=== PATIENT | male | born 1945 | race Caucasian/White ===

== ENCOUNTER → 2017-07-17 | Outpatient (CLI) | payer BC ==
[~2017-07-17] MED LIST: ACCUNEB SO1.25 MG/1 INH; APAP650 PO; ASPIR 8181 M1 PO; ASPIR 8181 MG PO; ASPIRIN81 M2 PO; ATORVASTATIN CA40 MG PO; BENADRYL25 MG PO; BENTYL 20 MG TA20 M1 PO; BIOFREEZE118 ML TOP; BIOFREEZE118 ML TP; BISACODYL SUPP10 MG RECTAL; CAPSAICIN HOT1 EACH TP; CARDIZEM CD120 MG PO; CARDIZEM60 MG PO; CENTRUM SILVER1 EAC4 PO; CLARITHROMYCIN250 M2 PO; CLONAZEPAM 0.50.5 M1 PO; CLONAZEPAM 1 MG1 M1 PO; COLACE100 MG PO; CORTEF 20 MG TA20 MG PO; CORTEF10 MG PO; COUMADIN 1MG TAB1 M1; COUMADIN 1MG TAB1 M1 PO; COUMADIN 2.5MG2.5 M1 PO; COUMADIN 5 MG TA5 M1 PO; CRESTOR10 MG PO; CRESTOR20 MG PO; DICYCLOMINE HCL20 MG PO; DULCOLAX STOOL100 MG PO; DURAGESIC1 EAC1 TRANSDERM; EFFEXOR XR75 MG PO; ERY-TAB250 MG PO; ERYTHROMYCIN250 M1 PO; FENOFIBRATE160 MG PO; FENTANYL PA50 MCG/HR TRANSDERM; FISH OIL 1,001000 M2 PO; FLOMAX0.4 MG PO; GABAPENTIN 100100 MG PO; HIPREX1 GM PO; HYDROCHLOROTH12.5 M1 PO; HYDROCODONE-APA1 TA1 PO; HYDROCORTISONE PO; HYDROCORTISONE10 MG PO; IBUPROFEN 200200 M1 PO; IMDUR 60 MG TAB60 M1 PO; INVANZ 1GM/NS 101 GM IV; KEFLEX250 M1 PO; KEFLEX250 MG PO; KLOR-CON 1010 MEQ PO; LASIX 20 MG TAB20 MG PO; LASIX 40 MG TAB40 M2 PO; LEVOTHYROXIN0.025 MG; LEVOTHYROXINE 0.1 MG PO; LIDODERM 5%1 PATC1 TRANSDERM; LIPITOR 20 MG T20 M1 PO; LIPITOR40 MG PO; LIPITOR80 MG PO; LISINOPRIL2.5 MG PO; LISINOPRIL5 MG PO; LOFIBRA160 MG PO; LOPRESSOR25 PO; LYRICA 50 MG50 MG PO; MELATONIN3 MG PO; METAMUCIL PAC1 UDPKT PO; METOPROLOL TART25 MG PO; MIRALAX17 G1 PO; MOM PO; NEURONTIN 300300 M1 PO; NEXIUM40 MG PO; NITROGLYCERIN0.4 MG SUBLING; NORCO 10-325 T1 EACH; NORCO 5-325 TA1 EAC1 PO; NORCO 5-325 TA1 EACH PO; NORCO 7.5-3251 EACH PO; NORVASC5 MG PO; PLAVIX 75 MG TA75 M1 PO; PROAIR HFA8.5 GM; PROAIR HFA8.5 GM INH; PROLIA60 MG/1 ML SQ; RESTORIL15 MG PO; RESTORIL30 MG PO; SINGULAIR 10 MG10 M1 PO; SPIRIVA INH; SYMBICORT80 MCG/4.1 INH; TOPROL XL25 MG PO; TRIGLIDE160 M1 PO; TYLENOL325 MG PO; VENLAFAXIN75 MG/1 T2 PO; VENLAFAXINE HC225 MG PO; VENTOLIN HFA 1818 GM INH; VICODIN ES 7.51 EACH PO; VITAMIN D 5050000 I1 PO; ZOFRAN ODT4 MG PO; hydrocortisone
--- NOTE | 2017-07-17 17:55 | 2DMMODE ---
[place] [address] 2 D/M-MODE ECHOCARDIOGRAM Name: MUKUL ROBERTS Room: [facility]#: [id number] Admission: 07/17/17 Attend Phys: Jonathan Blankenship, Discharge: Date of : 47 Date of Service: 07/17/17 1755 Report #: [id number] THIS REPORT FOR: //name// APPROVED REPORT Study performed: 07/17/2017 13:29:40 EXAM: Comprehensive 2D, Doppler, and color-flow Echocardiogram Patient Location: Out-Patient Status: routine BSA: 2.65 HR: 88 bpm BP: 95/44 mmHg Other Information Study Quality: Technically Difficult Technically limited study due to body habitus. Indications Murmur Echo Enhancing Agent Indication: Endocardial border delineation Agent(s) / Amount(s) Used: Optison cc 2D Dimensions LVEF(%): 66.57 (>50%) IVSd: 12.88 (7-11mm) LVOT Diam: 20.84 (18-24mm) LVDd: 48.73 mm PWd: 12.45 (7-11mm) Ascending Ao: 38.76 (22-36mm) LVDs: 30.77 (25-40mm) Aortic Root: 34.14 mm Herndon's LVEF: 66.57 % Pulmonary Valve PV Peak Wilder.: 1.06 m/s PV Peak Gr.: 4.47 mmHg Tricuspid Valve TR Peak Gr.: 17.47 mmHg Left Ventricle The left ventricle is normal size. There is normal LV segmental wall motion. Mild concentric left ventricular [place] [address] 2 D/M-MODE ECHOCARDIOGRAM Name: MUKUL ROBERTS Room: [facility]#: [id number] Admission: 07/17/17 Attend Phys: Jonathan Blankenship, Discharge: Date of : 47 Date of Service: 07/17/17 1755 Report #: [id number] ventricular systolic function is normal. The left ventricular ejection fraction is within the normal range. LVEF is 60-65%. Right Ventricle Right ventricle is mildly dilated. The right ventricular systolic function is normal. Atria The left atrium size is normal. The right atrium size is normal. Aortic Valve Aortic valve is mildly calcified. Mild aortic regurgitation. There is no aortic valvular stenosis. Mitral Valve The mitral valve is normal in structure. There is no mitral valve regurgitation noted. No evidence of mitral valve stenosis. Tricuspid Valve The tricuspid valve is normal in structure. Mild tricuspid regurgitation. The RVSP is __22.5 mmHg. Pulmonic Valve Pulmonic valve is not well visualized. Mild pulmonic regurgitation. Great Vessels Aortic root is mildly dilated. IVC is not well visualized. Pericardium There is no pericardial effusion. <Conclusion> Mild concentric left ventricular hypertrophy. LVEF is 60-65%. Right ventricle is mildly dilated. Aortic valve is mildly calcified <ELECTRONICALLY SIGNED> By: Julian Virk MD, FACC 07/17/171754 54 54 Julian Virk MD, FACC /INF
== END ==
LOC: M.CT 12:42
DX: M51.36 Other intervertebral disc degeneration, lumbar region (principal); M47.896 Other spondylosis, lumbar region; I25.10 Atherosclerotic heart disease of native coronary artery without angina pectoris; I07.1 Rheumatic tricuspid insufficiency; I37.1 Nonrheumatic pulmonary valve insufficiency; I51.7 Cardiomegaly; I70.0 Atherosclerosis of aorta

== ENCOUNTER 2017-09-14 20:09 | Inpatient (IN) | payer BC ==
[~2017-09-14] VITALS: Ht 188 cm; Wt 143.3 kg
[~2017-09-14 20:09] MED LIST changes: -ASPIRIN81 M2 PO; -CLARITHROMYCIN250 M2 PO
[2017-09-14 20:14] VITALS: BP 185/99
[2017-09-14] MEDS ORDERED: SINGULAIR 10 MG10 M1 PO (20:24)
[2017-09-14 20:40] LABS: ANION GAP 7 mmol/L (7-16); BUN 24 mg/dL (7-18); CALCIUM 8.2 mg/dL (8.5-10.1); CHLORIDE 102 mmol/L (98-107); CO2 30 mmol/L (21-32); CREATININE 1.9 mg/dL (0.6-1.3); GLUCOSE 150 mg/dL (70-99); POTASSIUM 3.8 mmol/L (3.5-5.1); SODIUM 139 mmol/L (136-145)
[2017-09-14 20:49] LABS: INR 1.7; PROTIME 16.2 Seconds (9.20-11.50)
[2017-09-14 20:51] LABS: ALBUMIN 3.2 g/dL (3.4-5.0); ALKALINE PHOSPHATASE 50 U/L (46-116); NT-PRO BRAIN NAT PEPTIDE 195 pg/mL (<300); SGOT 21 U/L (15-37); SGPT 22 U/L (30-65); TOTAL BILIRUBIN 0.5 mg/dL (<0.1-1.0); TOTAL PROTEIN 7.2 g/dL (6.4-8.2); TROPONIN-I LEVEL <0.06 ng/mL (<0.06)
[2017-09-14 20:54] LABS: ABSOLUTE EOSINOPHILS 0.1 thou/uL (0.0-0.7); ABSOLUTE LYMPHOCYTES 1.7 thou/uL (0.8-5.3); ABSOLUTE MONOCYTES 0.6 thou/uL (0.0-1.2); ABSOLUTE NEUTROPHILS 4.5 thou/uL (1.6-8.1); BASOPHILS 0.2 %; EOSINOPHILS 1.5 %; HEMATOCRIT 37.8 % (42.0-52.0); HEMOGLOBIN 12.5 gm/dL (14.0-18.0); LYMPHOCYTES 24.5 %; MCH 28.2 pg (26.0-34.0); MCV 85.5 fL (80.0-100.0); MONOCYTES 9.1 %; MPV 8.7 fl. (7.2-11.1); NUCLEATED RBCS 0 /100WBC; PLATELET COUNT* 222 thou/uL (150-400); POLYS 64.7 %; RBC 4.42 mil/uL (4.50-6.00); RDW-CV 16.4 % (10.5-14.5); WBC 6.9 thou/uL (4.0-11.0)
[2017-09-14 22:36] VITALS: BP 116/58
[2017-09-15 01:29] LABS: URINE BILIRUBIN NEGATIVE (Negative); URINE BLOOD NEGATIVE (Negative); URINE CLARITY CLEAR; URINE COLOR YELLOW; URINE GLUCOSE-RANDOM NEGATIVE (Negative); URINE KETONES NEGATIVE (Negative); URINE LEUKOCYTES-REFLEX NEGATIVE (Negative); URINE NITRITE-REFLEX NEGATIVE (Negative); URINE PROTEIN NEGATIVE (Negative); URINE UROBILINOGEN 0.2 E.U./dl (0.2-1.0)
[2017-09-15 03:43] LABS: HEMATOCRIT 33.8 % (42.0-52.0); HEMOGLOBIN 11.3 gm/dL (14.0-18.0); MCH 28.5 pg (26.0-34.0); MCHC 33.3 g/dL (28.0-37.0); MCV 85.4 fL (80.0-100.0); MPV 8.4 fl. (7.2-11.1); RBC 3.95 mil/uL (4.50-6.00); RDW-CV 16.6 % (10.5-14.5); WBC 5.4 thou/uL (4.0-11.0)
[2017-09-15 04:10] VITALS: BP 121/62
[2017-09-15 04:16] LABS: ALBUMIN 2.9 g/dL (3.4-5.0); CALCIUM 8.1 mg/dL (8.5-10.1); CREATININE 1.7 mg/dL (0.6-1.3); POTASSIUM 4.2 mmol/L (3.5-5.1); TOTAL BILIRUBIN 0.4 mg/dL (<0.1-1.0); TOTAL PROTEIN 5.9 g/dL (6.4-8.2)
--- NOTE | 2017-09-15 05:32 | NUR ---
PT ADMITTED FROM ER WITH CP AND HYPERTENSION. HISTORY AND ASSESSMENT COMPLETE. PACED ON MONITOR. O2 2L PER PROTOCOL. FENTANYL PATCH PLACED PER ORDER TO RIGHT UPPER BACK. FALL PRECAUTIONS IN PLACE INCLUDING BED ALARM. AT BEDSIDE. UP WITH WALKER AND MIN ASSIST. HAS HAD MULTIPLE FALLS AT HOME RECENTLY. ORIENTED TO ROOM/BED CONTROLS/CALL LIGHT. PT VERBALIZED UNDERSTANDING.
[2017-09-15 08:00] VITALS: BP 142/57
[2017-09-15 12:00] VITALS: BP 141/71
--- NOTE | 2017-09-15 15:49 | NUR ---
I ASSUMED CARE OF THE PATIENT AT 0700. HE IS ALERT AND ORIENTED AND HIS IS AT THE BEDSIDE. PATIENT WAS NPO UNTIL CARDIOLOGY CLEARED FOR HEART HEALTHY DIET. BED IS IN THE LOW LOCKED POSITION AND CALL LIGHT IS IN REACH. HOURLY ROUNDING WAS COMPLETED AND PATIENT NEEDS WERE MET. CHRONIC PAIN IS MANAGED WITH PRN MEDS AND PATCHES. DR BERRIOS WANTS TO D/C WARFARIN AND MAKE PATIENT NPO AT 0000 FOR A CARDIAC CATH ON 09/16/17. PATIENT IS PROGRESSING TOWARDS GOALS. HE IS UP WITH ASSIST OF 1, WALKER AND GAIT BELT. WILL CONTINUE TO MONITOR.
[2017-09-15 16:00] VITALS: BP 98/52
--- NOTE | 2017-09-15 16:41 | EKG ---
[place] [address] ELECTROCARDIOGRAM REPORT Name: MUKUL ROBERTS Room: [address] ADM IN [facility].#: [id number] Admission: 09/14/17 Attend Phys: Altaf Soto, Discharge: Date of : 47 Report #: [id number] THIS REPORT FOR: //name// [facility] ED Test Date: 2017-09-14 Test Time: 20:13:14 Pat Name: MUKUL ROBERTS Department: Room: [facility] Gender: M Lumber Bearer: NENO Carter : 1945 Requested By: Rhoda Scott Order Number: [id number] MD: Julian Virk Measurements Intervals [place] Rate: 105 P: 70 DE: 197 QRS: 31 QRSD: 87 T: 75 QT: 329 QTc: 435 Interpretive Statements Sinus tachycardia Baseline wander in lead(s) V2,V3 Compared to ECG 04/18/2017 10:05:54 Sinus rhythm no longer present Electronically Signed On 09-15-2017 16:41:12 CDT by Julian Virk [email or web address] <ELECTRONICALLY SIGNED> By: Julian Virk MD, FACC 09/15/17 1641 12 12 Julian Virk MD, [facility] /EPI
--- NOTE | 2017-09-15 16:59 | EKG ---
[place] [address] ELECTROCARDIOGRAM REPORT Name: MUKUL ROBERTS Room: [address] ADM IN .R.#: [id number] Admission: 09/14/17 Attend Phys: Altaf Soto, Discharge: Date of : 47 Report #: [id number] THIS REPORT FOR: //name// [facility] Test Date: 2017-09-15 Test Time: 08:38:26 Pat Name: MUKUL ROBERTS Department: Room: [address] Gender: M Brake Machine Operator: JEFFREY : 1945 Requested By: Julian Virk Order Number: [id number] Kadeem MD: Julian Virk Measurements Intervals [place] Rate: 68 P: 79 OR: 174 QRS: 30 QRSD: 92 T: 56 QT: 407 QTc: 433 Interpretive Statements Sinus rhythm nonspecific t wave changes Electronically Signed On 09-15-2017 16:59:33 CDT by Julian Virk [email or web address] <ELECTRONICALLY SIGNED> By: Julian Virk MD, [facility] 09/15/17 1659 0838 0838 Julian Virk MD, FACC /EPI
[2017-09-15 20:00] VITALS: BP 145/83
[2017-09-16] VITALS: BP 130/64
[2017-09-16 04:02] VITALS: BP 100/66
--- NOTE | 2017-09-16 05:20 | NUR ---
PT CARE ASSUMED AFTER REPORT. ASSESSMENT COMPLETE. PACED ON MONITOR. O2 2L NC. DENIES PAIN. FALL PRECAUTIONS IN PLACE INCLUDING BED ALARM. UP WITH WALKER AND ASSIST TO BATHROOM. NPO SINCE MIDNIGHT FOR PROCEDURE TODAY. CALL LIGHT IN REACH. BED IN LOWEST POSITION.
[2017-09-16 06:11] LABS: INR 1.3; PROTIME 13.1 Seconds (9.20-11.50)
[2017-09-16 08:00] VITALS: BP 145/61
--- NOTE | 2017-09-16 08:26 | CON ---
[address] [address] CONSULTATION Name: MUKUL ROBERTS Room: [address] IN M.R.#: [id number] Admission: 09/14/17 Attend Phys: Altaf Soto, Discharge: Date of : 47 Report #: [id number] THIS REPORT FOR: //name// CC: Ko Luciano DO Altaf Soto DATE OF SERVICE: 09/15/2017 CARDIOLOGY CONSULTATION HISTORY OF PRESENT ILLNESS: The patient is a 72-year-old white male who is admitted complaining of chest pain. The patient has an extensive and complicated past medical history. Unfortunately, most of his history occurred in [place], [place] and is not available. He apparently had a pacemaker inserted in 2002 for sick sinus syndrome with syncopal spells. Unfortunately, he continues to have syncope despite the pacemaker. He apparently underwent a generator change in [place] about 4 years ago. He has a history of paroxysmal atrial fibrillation with previous stroke and has been chronically anticoagulated. He has a long history of coronary artery disease. According to the patient and his , his first stent was placed in [place] about 5 years ago. He notes a month later, he had 5 additional stents placed while in [place], [place]. He presented here in 2013 with chest pain at [facility]. Heart catheterization showed no significant disease in the LAD or circumflex. The right coronary had multiple stents with a 70% narrowing of the mid right coronary artery. Dr. Rosario placed a single drug-eluting stent in the mid right coronary artery. His last stent was placed in [address] Corbett when a drug-eluting stent was placed in the right coronary artery. I actually performed his last heart catheterization in 04/2017 here at [facility] from the left femoral artery. I attempted from the radial artery, but could not access the left coronary artery. Results showed no significant disease in the LAD or circumflex. The right coronary artery had multiple stents. FFR was unremarkable. Medical therapy was recommended. His echocardiogram in July of this year showed an ejection fraction of 60%. The patient is not very active because of chronic back pain. The patient did well until a couple weeks ago. He developed shortness of breath and cough. He saw Dr. Luciano who placed him on amoxicillin. He has also had recurrent chest heaviness. It radiates into his left arm. It is usually relieved with nitroglycerin. It is not related to food or coughing. He has had no bleeding. He finally came to the Emergency Room last night and was admitted. He has noticed some shortness of breath and palpitations. He continues to have recurrent syncope. PAST MEDICAL HISTORY: Significant for prostate surgery, sinus surgery, tonsillectomy, hypertension, hyperlipidemia, sleep apnea [place] [address] CONSULTATION Name: ARMANDOMUKUL L Room: [address] IN [facility]#: [id number] Admission: 09/14/17 Attend Phys: Altaf Soto, Discharge: Date of : 47 Report #: [id number] MEDICATIONS: Consist of Neurontin, Flomax, fenofibrate, Plavix, warfarin, metoprolol, Synthroid, Lipitor, fentanyl patch, Lasix and Nexium. ALLERGIES: HE HAS INTOLERANCE TO VALIUM, OXYCODONE AND MORPHINE. FAMILY HISTORY: His father had heart disease. SOCIAL HISTORY: He is . He and his live in [place], [place]. He quit smoking years ago. He rarely drinks alcohol. He is retired from . REVIEW OF SYSTEMS: He apparently had a stroke in the past with loss of vision in his right eye. He has sleep apnea and uses BiPAP. He has a history of asthma. No history of peptic ulcer disease. He has chronic kidney disease. He has had a kidney stone in the past. No cancer. PHYSICAL EXAMINATION: GENERAL: Revealed a large male who is 6 feet, 300 pounds. VITAL SIGNS: He had a blood pressure of 140/60 and pulse 60. He was afebrile. HEENT: He was anicteric. Conjunctivae were pink. Mucous membranes moist. NECK: Neck veins difficult to assess due to obesity. No carotid bruits. CHEST: Clear to auscultation. CARDIAC EXAMINATION: Regular rate and rhythm. ABDOMEN: Obese, soft and nontender. EXTREMITIES: Had no edema. Dorsalis pedis pulse 2+ bilaterally. SKIN: Warm and dry. NEUROLOGICAL EXAMINATION: Nonfocal. RADIOGRAPHIC DATA: His ECG showed a sinus rhythm, nonspecific T-wave changes. His workup last night, he had portable chest x-ray, cardiomegaly and atelectasis. Carotid Doppler study in 2016 showed no significant stenosis. CT scan of the head in 2017 showed no acute abnormality. LABORATORY DATA: Sodium 143, creatinine 1.7 and glucose 115. Troponins all 0.06. TSH is 6.3. His white blood cell count 5.4, hemoglobin 11.3. INR last night was 1.7. IMPRESSION AND RECOMMENDATIONS: 1. Possible unstable angina. Recommend repeat cardiac catheterization. 2. History of atrial fibrillation. I would hold warfarin at this time. 3. Sick sinus syndrome. The patient had previous pacemaker inserted in [place]. 4. Obesity. 5. Chronic back pain. The patient uses a fentanyl patch. 6. Sleep apnea. The patient uses BiPAP. 7. Hypertension. The patient has been on [place] [address] CONSULTATION Name: MUKUL ROBERTS Jagdeep Room: [address] IN [facility].#: [id number] Admission: 09/14/17 Attend Phys: Altaf Soto, Discharge: Date of : 47 Report #: [id number] 8. Hyperlipidemia. The patient has been on a statin drug. 9. Chronic kidney disease. <ELECTRONICALLY SIGNED> By: Julian Virk MD, FACC 09/16/17 0826 1335 [id number] Virk MD, FACC /nt
[2017-09-16 12:00] VITALS: BP 122/56
[2017-09-16 14:03] LABS: ABSOLUTE EOSINOPHILS 0.2 thou/uL (0.0-0.7); ABSOLUTE LYMPHOCYTES 1.2 thou/uL (0.8-5.3); ABSOLUTE MONOCYTES 0.7 thou/uL (0.0-1.2); ABSOLUTE NEUTROPHILS 3.1 thou/uL (1.6-8.1); BASOPHILS 0.3 %; EOSINOPHILS 3.5 %; HEMATOCRIT 36.6 % (42.0-52.0); LYMPHOCYTES 23.7 %; MCH 27.8 pg (26.0-34.0); MCHC 32.8 g/dL (28.0-37.0); MCV 84.8 fL (80.0-100.0); MONOCYTES 14.2 %; MPV 8.5 fl. (7.2-11.1); NUCLEATED RBCS 0 /100WBC; PLATELET COUNT* 188 thou/uL (150-400); POLYS 58.3 %; RBC 4.31 mil/uL (4.50-6.00); RDW-CV 16.5 % (10.5-14.5); WBC 5.3 thou/uL (4.0-11.0)
--- NOTE | 2017-09-16 15:18 | NUR ---
WOUND NURSE: PATIENT SEEN TO ADDRESS CONTUSION FROM A FALL PRESENT ON THE LEFT LATEAL THIGH AND WHICH MEASURES 19.0 X 0.3 X 0.1 CM. THERE IS NO DRAINAGE NOTED AND SCABBING IS VERY SUPERFICIAL. THERE IS NO DRAINAGE NOTED. CLEANSED WTH SOAP AND WATER, RINSED WTH WATER, THEN PATTED DRY. APPLIED MARATHON LIQUID SKIN PROTECTANT AND LET DRY. NO FURTHER INTERVENTION WILL BE NECESSARY AT THIS TIME.
--- NOTE | 2017-09-16 15:26 | NUR ---
ATTEMPTED TO MEET WITH PT, OFF UNIT IN BUTANE COMPRESSOR OPERATOR
--- NOTE | 2017-09-16 18:52 | NUR ---
ASSUMED CARE OF PT AT 0730. PT CONTINUES TO BE A&O X4 CALM AND COOPERATIVE. PT HAS HAD NO C/O PAIN OR DISTRESS. PT WENT TO THE LEAD OPERATOR TODAY FOR A PROCEDURE AND HAS HAD NO COMPLICATIONS. CATH SITE IN LEFT GROIN HAS MINIMAL BRUISING AND A SCANT AMOUNT OF DRAINAGE THAT HAS NOT INCRESED IN SIZED. PT VSS SINCE HIS RETURN TO THE FLOOR AND HE HAS HAD NO COMPLAINTS OTHER THAN NOT BEING ALLOWED TO GET OUT OF BED TO USE THE BATHROOM. PT CURRENTLY RESTING IN BED WITH THE HOB LOCKED BELOW 30 DEGREES AND AT BEDSIDE. NURSING WILL CONTINUE TO MONITOR.
[2017-09-16 20:00] VITALS: BP 137/62
[2017-09-16 22:00] VITALS: BP 135/78
[2017-09-17] VITALS (7 sets, daily range): BP systolic 112–176; BP diastolic 54–94
[2017-09-17 05:58] LABS: HEMATOCRIT 34.8 % (42.0-52.0); HEMOGLOBIN 11.7 gm/dL (14.0-18.0); MCH 28.4 pg (26.0-34.0); MCHC 33.5 g/dL (28.0-37.0); MCV 84.6 fL (80.0-100.0); MPV 8.4 fl. (7.2-11.1); RBC 4.11 mil/uL (4.50-6.00); RDW-CV 16.5 % (10.5-14.5); WBC 4.5 thou/uL (4.0-11.0)
[2017-09-17 06:01] LABS: INR 1.2; PROTIME 11.5 Seconds (9.20-11.50)
--- NOTE | 2017-09-17 06:20 | NUR ---
PATIENT PROGRESSING TOWARDS GOALS: PATIENT REMAINS FREE OF CHEST PAIN. CATH SITE REMAINS WITHOUT SIGNS OF HEMATOMA. SCANT BLOOD ON DRESSING, BORDERS MARKED AND UNCHANGED THROUGHOUT SHIFT. PATIENT REMAINS ON 2L O2 NC WITH SATS >92%. PATIENT VOIDED PER URINAL THROUGHOUT SHIFT DESPITE BEING OFF BEDREST AT MIDNIGHT. PATIENT ANTICIPATING DISCHARGE TODAY. HOURLY ROUNDING OSBERVED. CALL LIGHT WITHIN REACH
[2017-09-17 06:45] LABS: ANION GAP 9 mmol/L (7-16); BUN 18 mg/dL (7-18); CHLORIDE 108 mmol/L (98-107); CHOLESTEROL 154 mg/dL (<200); CO2 24 mmol/L (21-32); CREATININE 1.5 mg/dL (0.6-1.3); GLUCOSE 126 mg/dL (70-99); HDL CHOLESTEROL 26 mg/dL (>40); LDL CHOLESTEROL 101 mg/dL (<100); POTASSIUM 3.7 mmol/L (3.5-5.1); SODIUM 141 mmol/L (136-145); TC:HDL 5.9 Ratio (Not establshd); TRIGLYCERIDE 136 mg/dL (<150); TROPONIN-I LEVEL <0.06 ng/mL (<0.06); VLDL 27 mg/dL (<40)
[2017-09-17 06:46] LABS: SERUM ASSESSMENT Clear
--- NOTE | 2017-09-17 10:57 | NUR ---
ASSUMED PT CARE AT 0700 PT IS ALERT AND ORIENTED X 4 PT IS UP WITH ASSIST X 1 PT IS A FALL RISK BED ALARM IS ON, PT IS DISCHARGING TODAY PT HAS BRUISE ON LEFT SIDE OF LEG, PT IS APACED ON THE MONITOR, WILL CONTINUE TO MONITOR
--- NOTE | 2017-09-17 11:56 | NUR ---
MET WITH PT AND SPOKE WITH /ELISA OVER THE PHONE TO DISCUSS HOME SITUATION/DC PLANNING. PT LIVE WITH , USES WALKER, W/C, O2 AND CPAP AT HOME. HIS O2 IS THRU [facility]. PT NEEDS SOME ASSIST WITH ADLS. HAS INHOME CARE AND HH THRU [facility]. CALLED AND FAXED UPDATED ORDERS TO MAURILIO/CONNIE. STATES SHE WILL PICK PT UP LATER TODAY. DENIES OTHER NEEDS.
[2017-09-17] MEDS ORDERED: LIPITOR80 MG PO (12:22)
[2017-09-17] MEDS ORDERED: ASPIRIN81 M2 PO (14:06)
--- NOTE | 2017-09-17 14:46 | EKG ---
[place] [address] ELECTROCARDIOGRAM REPORT Name: MUKUL ROBERTS Room: [address] ADM IN M.R.#: [id number] Admission: 09/14/17 Attend Phys: Altaf Soto, Discharge: Date of : 47 Report #: [id number] THIS REPORT FOR: //name// [facility] Test Date: 2017-09-17 Test Time: 03:24:06 Pat Name: MUKULLAKESHIA ROBERTS Department: Room: [address] Gender: M Government Property Inspector: : 1945 Requested By: Ezequiel Corbett Order Number: [id number] Kadeem MD: Jonathan Blankenship Measurements Intervals [place] Rate: 86 P: 97 NH: 206 QRS: 24 QRSD: 86 T: 73 QT: 449 QTc: 537 Interpretive Statements Sinus rhythm Abnormal R-wave progression, late transition Nonspecific T abnormalities, lateral leads Prolonged QT interval Baseline wander in lead(s) III Compared to ECG 09/15/2017 08:38:26 ST (T wave) deviation now present Prolonged QT interval now present T-wave abnormality still present Electronically Signed On 09-17-2017 14:46:16 CDT by Jonathan Blankenship [email or web address] <ELECTRONICALLY SIGNED> By: Jonathan Blankenship MD, FACC 09/17/17 1446 0324 0324 Jonathan Blankenship MD, FACC /EPI
--- NOTE | 2017-09-17 16:33 | CARD ---
[address] [address] CARDIAC CATH REPORT Name: ARMANDOMUKUL Jagdeep Room: [address]#: [id number] Admission: 09/14/17 Attend Phys: Altaf Soto, Discharge: 09/17/17 Date of : 47 Report #: [id number] THIS REPORT FOR: //name// APPROVED REPORT Patient Details Patient Status: In-Patient Room #: The patient is a 72 year-old male Event Personnel Ezequiel Corbett Adjudication Specialist, Geni Ji RN RN, Dale Anderson Monitor, Valerie Mathias RTR Scrub Procedures Performed Left heart catheterization selective coronary artery and stenting of the mid right coronary artery Indication Unstable angina Risk Factors Obesity, Hypercholesterolemia, Hypertension Previous Procedures/Diagnoses Previous PCI Admission/Lab Medications/Medications given during procedure Angiomax bolus and infusion Procedure Narrative The patient was brought electively to the Cardiac Catheterization Laboratory and was prepped and draped in a sterile manner. The left femoral was infiltrated with 1% Lidocaine subcutaneous anesthesia. A [place] 6 FR sheath was inserted into the left femoral artery. Coronary angiography was performed using coronary diagnostic catheters. The right coronary system was accessed and visualized with a Diagnostic - JR4 catheter. The left coronary system was accessed and visualized with a Diagnostic - JL4 catheter. The left ventricle was accessed and visualized with a Diagnostic - PIGTAIL catheter. Left ventricular/Aortic Valve gradient assessed via catheter pullback. Pre-demployment femoral angiogram was performed . Closure device was deployed with a Fr Angioseal STS 6Fr. The patient tolerated the procedure well and there were no complications associated with the procedure. [address] [address] CARDIAC CATH REPORT Name: MUKUL ROBERTS Room: [address]#: [id number] Admission: 09/14/17 Attend Phys: Altaf Soto, Discharge: 09/17/17 Date of : 47 Report #: [id number] Intraoperative Conscious Sedation Sedation start time: 1539 Case end Time: 1622 Versed 0.5 mg Fluoro Time: 10.1 minutes Dose: DAP [id number] cGycm2 1970 mGy Contrast Type and Amount: Visipaque 200 ml Coronary Angiography The patient's coronary anatomy is right dominant. Diagnostic Cath Left Main 10% distal narrowing LAD 30% proximal and mid vessel narrowings Circumflex 60% area of the first marginal branch of the nondominant circumflex Right Coronary Large dominant vessel with 30% proximal narrowing and 80% focal mid right coronary in-stent restenosis Ramus 0% narrowing Left Ventriculography Left Ventriculography was not performed. Hemodynamics The aortic pressure is 135/60 mmHg with a mean of 94 mmHg. The left ventricular pressure is 138/5 mmHg with a mean of mmHg. The left ventricular end diastolic pressure is 18 mmHg. There was no gradient across the aortic valve upon pullback. PCI Technique Lesion Anticoagulation was achieved with Angiomax. Patient was preloaded with Angiomax IV 20 ml. Percutaneous coronary intervention was performed on the mid right coronary artery. The lesion stenosis prior to intervention was 80% with BINH 3 flow. A 6F JR 4.0 Guide Catheter was used to engage the ostium. A IG: ProwaterFlex 180CM Interventional Guidewire was used to cross the lesion. BALLOON DILATION A Balloon catheter NC Trek RX 3.0 X 12 was inserted and inflated up to 18.00atm for 15seconds. Additional Inflation: 24.00atm for 14seconds. STENT DEPLOYMENT A stent Xience Alpine RX 3.25X12 was inserted and inflated up to 14.00atm for 12seconds. Additional Inflation: 18.00atm [place] 11[place]. [place] [address] CARDIAC CATH REPORT Name: MUKUL ROBERTS Room: [address]#: [id number] Admission: 09/14/17 Attend Phys: Altaf Soto, Discharge: 09/17/17 Date of : 47 Report #: [id number] Additional Inflation: 19.00atm for 13seconds. 20 RONALDO FOR 15 SEC Final angiography reveals 10 % stenosis with BINH 3 flow. Conclusion #1 significant coronary artery disease characterized by the following: A 10% distal left main coronary artery narrowing, B 30% proximal and mid LAD narrowing, C nondominant circumflex with 60% narrowing of the first marginal branch, D prominent ramus intermedius with no significant narrowing, E large dominant right coronary artery with 30% proximal narrowing and 80% focal mid right coronary in-stent restenosis #2 modest elevation of left ventricular end-diastolic pressure at rest #3 successful percutaneous coronary intervention with appointment of a drug-eluting stent at the site of 80% focal mid right coronary in-stent restenosis with 10% residual narrowing following stent deployment and BINH-3 flow to the distal vessel. Recommendations Daily ASA with Plavix for at least one year Aggressive Medical Therapy Weight Loss Reduction Program Medications Administered Aspirin (any) Clopidogrel Diagnostic Cath Approved by: Ezequiel Corbett MD Date/Time: 09/17/17 at 1630 hrs. <ELECTRONICALLY SIGNED> By: Ezequiel Corbett MD, [facility] 09/17/171631 31 31Ezequiel Corbett MD, FACC /INF
== END 2017-09-17 15:54 | disposition home health service (06) | DRG 246 ==
LOC: M.ERS 20:09 → M.TBA-ER 21:35 → M.2W 21:35
PROVIDERS: Emergency Medicine; Internal Medicine; ADMIT Family Medicine
PROC: 5A09357 Assistance with Respiratory Ventilation, Less than 24 Consecutive Hours, Continuous Positive Airway Pressure (ICD-10-PCS; principal; 2017-09-14)
PROC: 027034Z Dilation of Coronary Artery, One Artery with Drug-eluting Intraluminal Device, Percutaneous Approach (ICD-10-PCS; 2017-09-17)
PROC: 4A023N7 Measurement of Cardiac Sampling and Pressure, Left Heart, Percutaneous Approach (ICD-10-PCS; 2017-09-17)
PROC: B211YZZ Fluoroscopy of Multiple Coronary Arteries using Other Contrast (ICD-10-PCS; 2017-09-17)
DX: I20.0 Unstable angina (principal); N17.0 Acute kidney failure with tubular necrosis; N18.4 Chronic kidney disease, stage 4 (severe); I42.9 Cardiomyopathy, unspecified; Z68.41 Body mass index [BMI] 40.0-44.9, adult; I12.9 Hypertensive chronic kidney disease with stage 1 through stage 4 chronic kidney disease, or unspecified chronic kidney disease; I25.10 Atherosclerotic heart disease of native coronary artery without angina pectoris; J44.9 Chronic obstructive pulmonary disease, unspecified; Z95.5 Presence of coronary angioplasty implant and graft; G89.29 Other chronic pain; M19.90 Unspecified osteoarthritis, unspecified site; M81.0 Age-related osteoporosis without current pathological fracture; E78.5 Hyperlipidemia, unspecified; I48.91 Unspecified atrial fibrillation; I49.5 Sick sinus syndrome; M54.9 Dorsalgia, unspecified; R20.2 Paresthesia of skin; G47.33 Obstructive sleep apnea (adult) (pediatric); E66.01 Morbid (severe) obesity due to excess calories; D50.9 Iron deficiency anemia, unspecified; Z95.0 Presence of cardiac pacemaker; I25.2 Old myocardial infarction; Z87.891 Personal history of nicotine dependence; Z86.73 Personal history of transient ischemic attack (TIA), and cerebral infarction without residual deficits; Z88.6 Allergy status to analgesic agent; Z88.8 Allergy status to other drugs, medicaments and biological substances; Z82.49 Family history of ischemic heart disease and other diseases of the circulatory system; Z83.49 Family history of other endocrine, nutritional and metabolic diseases; Z79.82 Long term (current) use of aspirin; Z79.899 Other long term (current) drug therapy

== ENCOUNTER 2018-02-03 17:50 | Inpatient (IN) | payer BC ==
[~2018-02-03] VITALS: Ht 185.4 cm; Wt 145.6 kg
[~2018-02-03 17:50] MED LIST changes: +ASPIRIN81 M2 PO
[2018-02-03 17:54] VITALS: BP 146/71
[2018-02-03] MEDS ORDERED: HIPREX1 GM PO (18:04)
[2018-02-03] MEDS ORDERED: CLARITHROMYCIN250 M2 PO (18:05)
[2018-02-03 18:32] LABS: ABSOLUTE EOSINOPHILS 0.2 thou/uL (0.0-0.7); ABSOLUTE LYMPHOCYTES 1.7 thou/uL (0.8-5.3); ABSOLUTE MONOCYTES 0.9 thou/uL (0.0-1.2); ABSOLUTE NEUTROPHILS 4.2 thou/uL (1.6-8.1); BASOPHILS 0.2 %; EOSINOPHILS 2.3 %; HEMATOCRIT 39.1 % (42.0-52.0); HEMOGLOBIN 12.9 gm/dL (14.0-18.0); LYMPHOCYTES 24.4 %; MCH 28.5 pg (26.0-34.0); MCHC 32.9 g/dL (28.0-37.0); MCV 86.4 fL (80.0-100.0); MONOCYTES 13.2 %; MPV 8.1 fl. (7.2-11.1); NUCLEATED RBCS 0 /100WBC; PLATELET COUNT* 258 thou/uL (150-400); POLYS 59.9 %; RBC 4.52 mil/uL (4.50-6.00); RDW-CV 15.9 % (10.5-14.5)
[2018-02-03 18:40] LABS: ANION GAP 6 mmol/L (7-16); BUN 17 mg/dL (7-18); CALCIUM 8.2 mg/dL (8.5-10.1); CHLORIDE 103 mmol/L (98-107); CO2 28 mmol/L (21-32); CREATININE 1.5 mg/dL (0.6-1.3); GLUCOSE 110 mg/dL (70-99); POTASSIUM 3.5 mmol/L (3.5-5.1); SODIUM 137 mmol/L (136-145)
[2018-02-03 18:47] LABS: APTT 40.1 Seconds (25.0-31.3); INR 2.4
[2018-02-03 18:52] LABS: ALBUMIN 3.2 g/dL (3.4-5.0); ALKALINE PHOSPHATASE 64 U/L (46-116); LIPASE 192 U/L (73-393); NT-PRO BRAIN NAT PEPTIDE 140 pg/mL (<300); SGOT 14 U/L (15-37); SGPT 22 U/L (30-65); TOTAL BILIRUBIN 0.4 mg/dL (<0.1-1.0); TOTAL PROTEIN 7.1 g/dL (6.4-8.2); TROPONIN-I LEVEL <0.06 ng/mL (<0.06)
[2018-02-03 20:35] VITALS: BP 129/71
[2018-02-03 21:07] VITALS: BP 149/89
[2018-02-04] VITALS: BP 114/49
[2018-02-04 04:00] VITALS: BP 126/87
--- NOTE | 2018-02-04 07:06 | NUR ---
Pt admitted from ED at 2044 with chest pain. States chest pain resolved and no complaints of chest pain this shift. Received order to resume [place] 7.5/325 per home regimen for c/o chronic back pain, 1st dose given at 0700. VSS. NPO since [place] for cardiology consult. Hx stents X10 with last stent placed in October at [facility]. On 4L O2 per NC per home regimen. Uses CPAP at home, but did not bring it to hospital. Reports he slept well overnight. Will continue to monitor.
[2018-02-04 08:00] VITALS: BP 143/68
--- NOTE | 2018-02-04 10:46 | NUR ---
Nutrition: Pt admitted with chest pain. H/o multiple stents, CAD, HTN, TIA, COPD, asthma, HLD. Assessed for high BMI. Consult received reading "N." Pt has no N/V/complaints. Albumin 3.2. Wt is in usual range of 300-325# x several years. Pt follows low Na diet at home; has received low Na diet educ in past. Currently NPO. Low nutrition risk. PLEASE ADVANCE TO HEART HEALTHY DIET WHEN PT CLINICALLY ABLE.
--- NOTE | 2018-02-04 11:30 | NUR ---
MET WITH PT TO DISCUSS HOME SITUATION/DC PLANNING. PT LIVES WITH . SHE ASSISTS HIM WITH ADLS NEEDED. PT USES O2, CPAP THRU [facility], WALKER OR CANE. HE IS FAIRLY INDEPENDENT. DOES COAL WEIGHER AND DRIVES. THEY HAVE SOME IN HOME SERVICES THRU [facility]. PT HAS HAD HH IN THE PAST WITH [facility]. HE PLANS TO RETURN HOME AT [place]. WILL FOLLOW
[2018-02-04 11:59] VITALS: BP 131/63
[2018-02-04 16:13] VITALS: BP 141/79
--- NOTE | 2018-02-04 17:17 | EKG ---
[place] [address] ELECTROCARDIOGRAM REPORT Name: MUKUL ROBERTS Room: [place] [address] ADM IN ..#: [id number] Admission: 02/03/18 Attend Phys: Dale Cantor MD Discharge: Date of : 47 Report #: [id number] THIS REPORT FOR: //name// [facility] ED Test Date: 2018-02-03 Test Time: 17:56:12 Pat Name: MUKULLAKESHIA ROBERTS Department: Room: [facility] Gender: M Operations Officer Afloat: [facility] : 1945 Requested By: Triny Yeh Order Number: [id number] MD: Jonathan Blankenship Measurements Intervals [place] Rate: 92 P: 87 [place]: 187 QRS: 35 QRSD: 87 T: 65 QT: 330 QTc: 409 Interpretive Statements Sinus rhythm Atrial premature complexes Baseline wander in lead(s) V2 Compared to ECG 09/17/2017 03:24:06 Atrial premature complex(es) now present T-wave abnormality no longer present Prolonged QT interval no longer present Electronically Signed On 02-04-2018 17:17:44 CDT by Jonathan Blankenship [email or web address] <ELECTRONICALLY SIGNED> By: Jonathan Blankenship MD, FACC 02/04/18 1717 1756 1756 Jonathan Blankenship MD, FAC /EPI
--- NOTE | 2018-02-04 17:19 | EKG ---
[place] [address] ELECTROCARDIOGRAM REPORT Name: MUKUL ROBERTS Room: [place] [address] ADM IN .R.#: [id number] Admission: 02/03/18 Attend Phys: Dale Cantor MD Discharge: Date of : 47 Report #: [id number] THIS REPORT FOR: //name// [facility] Test Date: 2018-02-04 Test Time: 02:01:06 Pat Name: MUKUL ROBERTS Department: Room: [place] [address] Gender: M Helpdesk Analyst: : 1945 Requested By: Santos Bell Order Number: [id number] Kadeem MD: Jonathan Blankenship Measurements Intervals [place] Rate: 66 P: SD: 177 QRS: 34 QRSD: 96 T: 47 QT: 380 QTc: 399 Interpretive Statements Sinus rhythm Compared to ECG 09/17/2017 03:24:06 T-wave abnormality no longer present Prolonged QT interval no longer present Electronically Signed On 02-04-2018 17:19:07 CDT by Jonathan Blankenship [email or web address] <ELECTRONICALLY SIGNED> By: Jonathan Blankenship MD, [facility] 02/04/18 1719 0 0 Jonathan Blankenship MD, [facility] /EPI
--- NOTE | 2018-02-04 18:43 | NUR ---
PATIENT RESTING IN BED. UP IN ROOM WITH ASSITANCE. SECOND PORTION OF STRESS TESTING TOMMORROW. VITAL SIGNS STABLE. HOURLY ROUNDING COMPLETED FOR [facility] [employer].
[2018-02-04 20:15] VITALS: BP 107/71
[2018-02-05] VITALS: BP 107/37
[2018-02-05 04:00] VITALS: BP 115/57
[2018-02-05 04:45] LABS: ABSOLUTE EOSINOPHILS 0.3 thou/uL (0.0-0.7); ABSOLUTE LYMPHOCYTES 1.4 thou/uL (0.8-5.3); ABSOLUTE MONOCYTES 0.8 thou/uL (0.0-1.2); ABSOLUTE NEUTROPHILS 3.3 thou/uL (1.6-8.1); BASOPHILS 0.2 %; EOSINOPHILS 4.9 %; HEMATOCRIT 40.3 % (42.0-52.0); LYMPHOCYTES 24.3 %; MCH 28.1 pg (26.0-34.0); MCHC 32.3 g/dL (28.0-37.0); MCV 87.2 fL (80.0-100.0); MONOCYTES 13.3 %; MPV 8.7 fl. (7.2-11.1); NUCLEATED RBCS 0 /100WBC; PLATELET COUNT* 232 thou/uL (150-400); POLYS 57.3 %; RBC 4.63 mil/uL (4.50-6.00); RDW-CV 15.9 % (10.5-14.5); WBC 5.8 thou/uL (4.0-11.0)
[2018-02-05 04:58] LABS: INR 2.4; PROTIME 22.8 Seconds (9.20-11.50)
[2018-02-05 05:06] LABS: CALCIUM 8.5 mg/dL (8.5-10.1); CREATININE 1.8 mg/dL (0.6-1.3); POTASSIUM 4.3 mmol/L (3.5-5.1)
--- NOTE | 2018-02-05 06:58 | NUR ---
Pt c/o back pain, pain med given per order. Pt also requested sleeping pill; received order from physician lion hunter. However, pt states he did not sleep very well overnight despite the sleeping pills. States he is hopeful of completin g2nd part od stress test early today so determination can be made as far as discharge vs. angiogram. VSS. Will continue to monitor.
[2018-02-05 08:00] VITALS: BP 115/67
[2018-02-05 12:00] VITALS: BP 123/62
[2018-02-05] MEDS ORDERED: HYDROCORTISONE10 MG PO (13:18)
[2018-02-05 13:33] VITALS: BP 123/62
[2018-02-05 16:16] VITALS: BP 136/72
--- NOTE | 2018-02-05 16:32 | NUR ---
ASSUMED CARE OF PT AROUND 0730 THIS AM.REFER TO ASSESSMENT. PT HAS HAD NO C/O CHEST PAIN THIS SHIFT. COMPLETED SECOND DAY STRESS TEST TODAY. PT HAS OK TO DC ORDERS IF STRESS TEST NEGATIVE. AWAITING RESULTS. NO OTHER CONCERNS AT THIS TIME. CLWR. WCTM.
--- NOTE | 2018-02-05 16:35 | CARDNUC ---
[place] [address] CARDIAC NUCLEAR IMAGING REPORT Name: MUKUL ROBERTS Room: [address] IN [facility]#: [id number] Admission: 02/03/18 Attend Phys: Dale Cantor, Discharge: Date of : 47 Date of Service: 02/05/18 1635 Report #: [id number] THIS REPORT FOR: //name// APPROVED REPORT Imaging Protocol: Stress Tc-99m/Rest Tc-99m 2 days Study performed: 02/04/2018 10:13:00 Indication: Chest pain, Dyspnea Patient Location: In-Patient Room #: 227 Stress Tech: Kenisha Collazo Stress Nurse: Inessa Genao RN NM Tech:ARLINE Hernandez Ht: 6 ft 1 in Wt: 325 lbs BSA: 2.64 m2 BMI: 42.87 Medical History Medical History: Atrial Fibrillation, CHF, Pacemaker,, HTN, Hyperlipidemia, CVD, SC Medications: Warfarin, Atorvastatin, Clopidogrel, NTG SL PRN, Lasix, Metoprolol Allergies: Valium, Morphine, Codiene Cardiac Risk Factors: Age, Hyperlipidemia, HTN, Tobacco History (Former), Family HX, CVA, Renal Disease. Previous Cardiac Procedures: Myocardial infarction, Stents, Pacemaker Exercise History: Sedentary Meds Held (24 hrs): Metoprolol, Atorvastatin, Clopidogrel, all held more than 12 Hr. Resting Data Rest SPECT myocardial perfusion imaging was performed in supine position 30 minutes following the intravenous injection of 35.1 mCi of Tc-99m Sestamibi. Time of rest injection: 934 Date: 02/05/2018 Time of rest imagin The images were gated to evaluate regional wall motion and calculate left ventricular ejection fraction. Administration Route: IV Administration Site: Right AC Pharmacologic Stress Pharmacologic stress test was performed by injecting Regadenoson 0.4 [place] [address] CARDIAC NUCLEAR IMAGING REPORT Name: MUKUL ROBERTS Room: [address]#: [id number] Admission: 02/03/18 Attend Phys: Dale Cantor, Discharge: Date of : 47 Date of Service: 02/05/18 1635 Report #: [id number] mg IV push over 10-15 seconds immediately followed by the intravenous injection of 33.6 mCi of Tc-99m Sestamibi. Time of stress injection: 13:05 Date: 02/04/2018 Administration Route: IV Administration Site: Right AC Gated Stress SPECT was performed 40 minutes after stress injection. The images were gated to evaluate regional wall motion and calculate left ventricular ejection fraction. Stress only was performed in the Supine position. Stress Test Details Stress Test: Pharmacologic stress testing performed using 0.4 mg of regadenoson per 5 mL given IV over 10 seconds. Reason for pharmacologic stress test: physical limitation. 60 mg caffeine given for headache. HR Max Heart Rate (APMHR): 149 bpm Resting HR: 88 bpm Target HR (85% APMHR): 126 bpm Max HR Achieved: 105 bpm % of APMHR: 70 Recovery HR: 102 bpm BP Resting BP: 129/57 mmHg Recovery BP: 129/65 mmHg ECG Resting ECG: Sinus Rhythm Stress ECG: Sinus Tachycardia ST Change: None Arrhythmia: None Recovery ECG: Sinus Rhythm Recovery ST Change: None Recovery Arrhythmia: None Clinical Reason for Termination: Completed protocol Stress Symptoms: Headache Exercise duration: 0 min 0 sec Exercise capacity: 1 METs Overall Exercise Capacity for Age: Excellent The patient had no significant symptoms with Lexiscan infusion. Nurse Comments Pt tolerated Lexiscan well, [place] [address] CARDIAC NUCLEAR IMAGING REPORT Name: MUKUL ROBERTS Room: [address]#: [id number] Admission: 02/03/18 Attend Phys: Dale Cantor, Discharge: Date of : 47 Date of Service: 02/05/18 1635 Report #: [id number] caffeine. Stress ECG Conclusion The baseline EKG show sinus rhythm without significant ST or T wave abnormality. EKGs obtained during and post Lexiscan infusion show sinus rhythm and sinus tachycardia with no significant ST or T wave changes when compared to baseline. There were no stress-induced arrhythmias. Study Quality Study: Good Artifact: Mild Diaphragmatic artifact Study Data At rest, the left ventricular ejection fraction was 68%.. Post stress, the left ventricular ejection was 79%.. TID = 1.00. Perfusion There is a moderate size mild intensity reversible defect involving the basal portion the inferior wall. No other significant defects are identified. Wall Motion Normal left ventricular wall motion. Nuclear Conclusion ECG Findings: negative for ischemia Clinical Findings: negative for ischemia Nuclear Findings: positive for ischemia Exercise Capacity: not assessed Left Ventricular Function: normal Risk Study: moderate There appears to be a moderate size mildly reversible defect involving the basal portion inferior wall. This would suggest mild ischemia in the right coronary artery distribution. Overall left ventricular systolic function appears well-preserved. This is a moderate risk study. <Conclusion> The baseline EKG show sinus rhythm without significant ST or T wave abnormality. EKGs obtained during and post Lexiscan infusion show sinus rhythm and sinus tachycardia with no significant [place] [address] CARDIAC NUCLEAR IMAGING REPORT Name: MUKUL ROBERTS Room: [address] IN ..#: [id number] Admission: 02/03/18 Attend Phys: Dale Cantor, Discharge: Date of : 47 Date of Service: 02/05/18 1635 Report #: [id number] changes when compared to baseline. There were no stress-induced arrhythmias. <ELECTRONICALLY SIGNED> By: Jonathan Blankenship MD, FACC 02/05/18 1635 1635 1635 Jonathan Blankenship MD, FACC /INF
--- NOTE | 2018-02-05 17:53 | NUR ---
REFER TO STRESS TEST RESULTS. PT DC AT THIS TIME PER W/C WITH NURSING STAFF AND TO PRIVATE VEHICLE. IV REMOVED. PT GIVEN DISCHARGE INSTRUCTIONS AND VERBALIZES UNDERSTANDING. NO OTHER CONCERNS AT THIS TIME.
== END 2018-02-05 17:55 | disposition home or self-care (01) | DRG 682 ==
LOC: M.ERS 17:50 → M.2W 19:41 → M.TBA-ER 19:41 → M.2W 20:43
PROVIDERS: Internal Medicine; Personal Emergency Response Attendant; ADMIT Internal Medicine
DX: N17.9 Acute kidney failure, unspecified (principal); J96.20 Acute and chronic respiratory failure, unspecified whether with hypoxia or hypercapnia; I50.32 Chronic diastolic (congestive) heart failure; E23.0 Hypopituitarism; I13.0 Hypertensive heart and chronic kidney disease with heart failure and stage 1 through stage 4 chronic kidney disease, or unspecified chronic kidney disease; I42.9 Cardiomyopathy, unspecified; I25.119 Atherosclerotic heart disease of native coronary artery with unspecified angina pectoris; N18.9 Chronic kidney disease, unspecified; M81.0 Age-related osteoporosis without current pathological fracture; J44.9 Chronic obstructive pulmonary disease, unspecified; E78.00 Pure hypercholesterolemia, unspecified; I25.2 Old myocardial infarction; I49.5 Sick sinus syndrome; E78.5 Hyperlipidemia, unspecified; I48.0 Paroxysmal atrial fibrillation; M19.90 Unspecified osteoarthritis, unspecified site; G89.29 Other chronic pain; I25.10 Atherosclerotic heart disease of native coronary artery without angina pectoris; Z95.5 Presence of coronary angioplasty implant and graft; Z95.0 Presence of cardiac pacemaker; Z79.2 Long term (current) use of antibiotics; Z79.01 Long term (current) use of anticoagulants; Z79.82 Long term (current) use of aspirin; Z79.899 Other long term (current) drug therapy; Z88.8 Allergy status to other drugs, medicaments and biological substances; Z88.6 Allergy status to analgesic agent; Z91.041 Radiographic dye allergy status; Z86.73 Personal history of transient ischemic attack (TIA), and cerebral infarction without residual deficits; Z87.891 Personal history of nicotine dependence

== ENCOUNTER → 2018-02-20 | Outpatient (CLI) | payer BC ==
[2018-02-20] VITALS (8 sets, daily range): BP systolic 95–123; BP diastolic 39–72
[~2018-02-20] VITALS: Ht 188 cm; Wt 142.9 kg
[~2018-02-20] MED LIST changes: +CLARITHROMYCIN250 M2 PO
[2018-02-20 09:17] LABS: HEMATOCRIT 40.1 % (42.0-52.0); MCH 28.2 pg (26.0-34.0); MCHC 32.3 g/dL (28.0-37.0); MCV 87.2 fL (80.0-100.0); MPV 8.3 fl. (7.2-11.1); RBC 4.6 mil/uL (4.50-6.00); RDW-CV 15.7 % (10.5-14.5); WBC 6.8 thou/uL (4.0-11.0)
[2018-02-20 09:33] LABS: ANION GAP 6 mmol/L (7-16); BUN 14 mg/dL (7-18); CALCIUM 8.2 mg/dL (8.5-10.1); CHLORIDE 104 mmol/L (98-107); CO2 29 mmol/L (21-32); CREATININE 1.8 mg/dL (0.6-1.3); GLUCOSE 97 mg/dL (70-99); POTASSIUM 3.8 mmol/L (3.5-5.1); SODIUM 139 mmol/L (136-145)
[2018-02-20 09:38] LABS: ALBUMIN 3.4 g/dL (3.4-5.0); ALKALINE PHOSPHATASE 58 U/L (46-116); CHOLESTEROL 134 mg/dL (<200); HDL CHOLESTEROL 29 mg/dL (>40); LDL CHOLESTEROL 82 mg/dL (<100); SGOT 18 U/L (15-37); SGPT 19 U/L (30-65); TC:HDL 4.6 Ratio (Not establshd); TOTAL BILIRUBIN 0.4 mg/dL (<0.1-1.0); TOTAL PROTEIN 7.2 g/dL (6.4-8.2); TRIGLYCERIDE 118 mg/dL (<150); VLDL 24 mg/dL (<40)
[2018-02-20 09:39] LABS: INR 1.1; PROTIME 10.6 Seconds (9.20-11.50); SERUM ASSESSMENT Clear
--- NOTE | 2018-02-20 11:43 | EKG ---
[place] [address] ELECTROCARDIOGRAM REPORT Name: MUKUL ROBERTS Room: [facility]#: [id number] Admission: 02/20/18 Attend Phys: Jonathan Blankenship MD Discharge: Date of : 47 Report #: [id number] THIS REPORT FOR: //name// [facility] Test Date: 2018-02-20 Test Time: 09:53:27 Pat Name: MUKUL ROBERTS Department: Room: Gender: M Parking Technician: : 1945 Requested By: Jonathan Blankenship Order Number: [id number] MD: Julian Virk Measurements Intervals [place] Rate: 70 P: 91 RI: 218 QRS: 65 QRSD: 103 T: 21 QT: 354 QTc: 382 Interpretive Statements Sinus rhythm Supraventricular bigeminy Borderline prolonged RI interval Borderline low voltage, extremity leads Compared to ECG 02/04/2018 02:01:06 Atrial premature complex(es) now present Electronically Signed On 02-20-2018 11:42:44 CDT by Julian Virk [email or web address] <ELECTRONICALLY SIGNED> By: Julian Virk MD, [facility] 02/20/18 [id number] Julian Virk MD, [facility] /EPI
--- NOTE | 2018-02-21 17:45 | CARD ---
[address] [address] CARDIAC CATH REPORT Name: MUKUL ROBERTS Jagdeep Room: [facility]#: [id number] Admission: 02/20/18 Attend Phys: Jonathan Blankenship MD Discharge: Date of : 47 Report #: [id number] THIS REPORT FOR: //name// APPROVED REPORT Study performed: 02/20/2018 09:21:20 Patient Details Patient Status: Out-Patient Room #: The patient is a 72 year-old male Event Personnel Jonathan Blankenship Area Intelligence Technician, Geni Ji RN RN, La Flowers Scrub, Taty Pisano RTR Scrub, Dale Anderson Monitor, Aris Alfredo ARRBerta (R) Monitor Procedures Performed Left Heart Cath w/or w/o Coronaries Procedure Narrative A Slender Glidesheath sheath was inserted into the Right Radial Artery. Coronary angiography was performed using coronary diagnostic catheters. The right coronary system was accessed and visualized with a 3DRC 5fr catheter. The left coronary system was accessed and visualized with a DCR: [place] 4.0 5fr catheter. Left ventricular/Aortic Valve gradient assessed via catheter pullback. The patient tolerated the procedure well and there were no complications associated with the procedure. Intraoperative Conscious Sedation Sedation start time: 11:21 Case end Time: 11:40 Fentanyl 100 mcg Versed 2 mg Fluoro Time: 7.5 minutes Dose: DAP 538246 cGycm2 1924 mGy Contrast Type and Amount: Visipaque 100 ml Diagnostic Cath Left Main 20% distal vessel narrowing. LAD 30% proximal and mid LAD narrowing. The distal vessel is free of significant disease. Diagonal 1 Free of significant disease. Diagonal 2 Free of significant disease. Diagonal 3 [place] [address] CARDIAC CATH REPORT Name: MUKUL ROBERTS Room: [facility]#: [id number] Admission: 02/20/18 Attend Phys: Jonathan Blankenship MD Discharge: Date of : 47 Report #: [id number] Circumflex Free of significant disease. OM1 60% narrowing proximally. OM2 Free of significant disease. Right Coronary Widely patent stents noted from the ostium to the distal right coronary artery. R PDA Free of significant disease. RPLV Free of significant disease. Ramus Large ramus branch with marginal distribution free of significant disease. Hemodynamics The aortic pressure is 83/53 mmHg with a mean of 65 mmHg. The left ventricular pressure is 106/8 mmHg with a mean of mmHg. The left ventricular end diastolic pressure is 19 mmHg. Conclusion 1. Widely patent stents from the ostial to distal right coronary artery. 2. No other hemodynamically significant stenoses identified. 3. Minimally elevated left ventricular end-diastolic pressure. Recommendations 1. Continue medical management and aggressive risk factor modification. <ELECTRONICALLY SIGNED> By: Jonathan Blankenship MD, FACC 02/21/18 1745 [id number] Cyndy Blankenship MD, FACC /INF
== END | disposition home or self-care (01) ==
LOC: M.CL 08:44
PROVIDERS: Internal Medicine Cardiovascular Disease
DX: I50.1 Left ventricular failure, unspecified (principal); I10 Essential (primary) hypertension; I25.2 Old myocardial infarction; J44.9 Chronic obstructive pulmonary disease, unspecified; I42.9 Cardiomyopathy, unspecified; G89.29 Other chronic pain; M19.90 Unspecified osteoarthritis, unspecified site; J45.909 Unspecified asthma, uncomplicated; E78.5 Hyperlipidemia, unspecified; M81.0 Age-related osteoporosis without current pathological fracture; N28.9 Disorder of kidney and ureter, unspecified; Z95.5 Presence of coronary angioplasty implant and graft; Z95.0 Presence of cardiac pacemaker; Z86.73 Personal history of transient ischemic attack (TIA), and cerebral infarction without residual deficits; Z88.6 Allergy status to analgesic agent; Z88.8 Allergy status to other drugs, medicaments and biological substances; Z91.041 Radiographic dye allergy status; Z79.899 Other long term (current) drug therapy; Z79.82 Long term (current) use of aspirin; Z79.01 Long term (current) use of anticoagulants

== ENCOUNTER → 2018-06-20 | Outpatient (CLI) | payer BC | LOC: M.ULTRA 15:30 | DX: N28.1 Cyst of kidney, acquired (principal) ==

== ENCOUNTER 2019-02-14 11:11 | Inpatient (IN) | payer BC ==
[~2019-02-14] VITALS: Ht 188 cm; Wt 151.5 kg
[2019-02-14 11:18] VITALS: BP 154/77
[2019-02-14] MEDS ORDERED: NEURONTIN 400400 M1 PO (11:21)
[2019-02-14] MEDS ORDERED: CARVEDILOL12.5 MG PO (11:22)
[2019-02-14 11:53] LABS: ABSOLUTE EOSINOPHILS 0.2 thou/uL (0.0-0.7); ABSOLUTE LYMPHOCYTES 0.8 thou/uL (0.8-5.3); ABSOLUTE MONOCYTES 0.7 thou/uL (0.0-1.2); ABSOLUTE NEUTROPHILS 6.9 thou/uL (1.6-8.1); BASOPHILS 0.2 %; EOSINOPHILS 2.3 %; HEMATOCRIT 37.4 % (42.0-52.0); HEMOGLOBIN 12.4 gm/dL (14.0-18.0); MCH 28.7 pg (26.0-34.0); MCHC 33.1 g/dL (28.0-37.0); MCV 86.7 fL (80.0-100.0); MONOCYTES 8.4 %; MPV 8.2 fl. (7.2-11.1); NUCLEATED RBCS 0 /100WBC; PLATELET COUNT* 233 thou/uL (150-400); POLYS 80.1 %; RBC 4.31 mil/uL (4.50-6.00); RDW-CV 14.7 % (10.5-14.5); WBC 8.6 thou/uL (4.0-11.0)
[2019-02-14 12:04] LABS: ANION GAP 6 mmol/L (7-16); APTT 37.3 Seconds (25.0-31.3); BUN 24 mg/dL (7-18); CALCIUM 8.5 mg/dL (8.5-10.1); CHLORIDE 104 mmol/L (98-107); CO2 29 mmol/L (21-32); CREATININE 1.6 mg/dL (0.6-1.3); GLUCOSE 107 mg/dL (70-99); POTASSIUM 3.9 mmol/L (3.5-5.1); PROTIME 19.7 Seconds (9.20-11.50); SODIUM 139 mmol/L (136-145)
[2019-02-14 12:13] LABS: ALBUMIN 3.1 g/dL (3.4-5.0); ALKALINE PHOSPHATASE 55 U/L (46-116); LIPASE 253 U/L (73-393); SGOT 11 U/L (15-37); SGPT 20 U/L (30-65); TOTAL BILIRUBIN 0.4 mg/dL (<0.1-1.0); TOTAL PROTEIN 6.8 g/dL (6.4-8.2); TROPONIN-I LEVEL <0.06 ng/mL (<0.06)
[2019-02-14 13:12] VITALS: BP 118/55
--- NOTE | 2019-02-14 13:45 | NUR ---
PT ARRIVED TO UNIT VIA CART AT APPROX 1330, REPORT TAKEN FROM FLIP MERCER. PT A&O X4, VSS, SENIOR UX DEVELOPER TRACING A PACED, FULL ASSESSMENT CHARTED. UP WITH ASSIST X1 AND WALKER, PT ORIENTED TO CALL LIGHT AND ROOM.
[2019-02-14 16:02] LABS: MCH 28.7 pg (26.0-34.0); MCHC 33.2 g/dL (28.0-37.0); MCV 86.5 fL (80.0-100.0); MPV 8.1 fl. (7.2-11.1); RBC 4.16 mil/uL (4.50-6.00); RDW-CV 14.6 % (10.5-14.5); WBC 7.8 thou/uL (4.0-11.0)
[2019-02-14 16:04] VITALS: BP 153/92
[2019-02-14 19:50] VITALS: BP 126/50
[2019-02-15] VITALS: BP 118/53
[2019-02-15 04:00] VITALS: BP 136/69
[2019-02-15 04:38] LABS: HEMATOCRIT 33.8 % (42.0-52.0); HEMOGLOBIN 11.1 gm/dL (14.0-18.0); MCH 28.8 pg (26.0-34.0); MCV 87.3 fL (80.0-100.0); MPV 8.3 fl. (7.2-11.1); RBC 3.87 mil/uL (4.50-6.00); RDW-CV 14.6 % (10.5-14.5); WBC 6.1 thou/uL (4.0-11.0)
[2019-02-15 04:50] LABS: ALBUMIN 2.8 g/dL (3.4-5.0); CALCIUM 7.9 mg/dL (8.5-10.1); CREATININE 1.4 mg/dL (0.6-1.3); POTASSIUM 3.7 mmol/L (3.5-5.1); TOTAL BILIRUBIN 0.4 mg/dL (<0.1-1.0); TOTAL PROTEIN 6.1 g/dL (6.4-8.2)
--- NOTE | 2019-02-15 07:36 | NUR ---
PT CARE ASSUMED AT 1930. SAT MAINTAINED IN O2. ALERT AND ORIENTED X4. CALL LIGHT WITHIN REACH AND BED IN LOW POSITION. SOB WITH EXERTION. C/O PAIN, MEDICATION GIVEN PER EMAR. HOURLY ROUNDING DONE FOR PT SAFETY.
[2019-02-15 15:46] VITALS: BP 135/66
[2019-02-15 15:53] VITALS: BP 125/67
--- NOTE | 2019-02-15 18:10 | NUR ---
ASSUMED PT CARE AT 0700, PT A&O X4, UP WITH STANDBY ASSIST AND WALKER, MANAGER HUMAN CAPITAL TRACING SINUS RHYTHM, REMAINS ON 2LPM O2 VIA NC DURING DAY, FULL ASSESSMENT CHARTED. EGD AND COLONOSCOPY COMPLETED, RESULTS IN CHART. REMAINS ON CONTACT ISOLATION FOR PENDING CDIFF RESULTS, ALL FALL AND ISOLATION PRECAUTIONS IN PLACE, HOURLY ROUNDING COMPLETED.
[2019-02-15 20:00] VITALS: BP 164/79
[2019-02-16] VITALS (7 sets, daily range): BP systolic 113–163; BP diastolic 55–87
[2019-02-16 04:49] LABS: HEMATOCRIT 34.8 % (42.0-52.0); HEMOGLOBIN 11.5 gm/dL (14.0-18.0); MCH 28.6 pg (26.0-34.0); MCHC 32.9 g/dL (28.0-37.0); MCV 86.8 fL (80.0-100.0); MPV 8.4 fl. (7.2-11.1); RBC 4.01 mil/uL (4.50-6.00); RDW-CV 14.6 % (10.5-14.5); WBC 7.8 thou/uL (4.0-11.0)
[2019-02-16 05:03] LABS: CALCIUM 7.8 mg/dL (8.5-10.1); CREATININE 1.4 mg/dL (0.6-1.3); POTASSIUM 3.5 mmol/L (3.5-5.1)
--- NOTE | 2019-02-16 05:59 | NUR ---
ASSUMED PATIENT CARE AT 1900. PATIENT ALERT AND OREINTED TIMES FOUR. COMLPAINTS OF PAIN NOTED. ORAL MEDICATION GIVEN. FLUIDS TURNED OFF R/T POST PROCEDURE ORDER. STATION MECHANIC HELPER AND HOURLY ROUNDING COMPLETED CHARTED.
--- NOTE | 2019-02-16 10:03 | EKG ---
[place] [address] ELECTROCARDIOGRAM REPORT Name: MUKUL ROBERTS Room: [address] ADM IN [facility].#: [id number] Admission: 02/14/19 Attend Phys: Jenae Jauregui MD Discharge: Date of : 47 Report #: [id number] THIS REPORT FOR: //name// [facility] ED Test Date: 2019-02-14 Test Time: 11:47:58 Pat Name: MUKUL ROBERTS Department: Room: [facility] Gender: M Emergency Telecommunications Dispatcher: : 1945 Requested By: Daniella Neff Order Number: [id number] MD: Ezequiel Corbett Measurements Intervals [place] Rate: 100 P: 71 LA: 240 QRS: 20 QRSD: 84 T: 67 QT: 305 QTc: 394 Interpretive Statements Sinus tachycardia Prolonged LA interval Nonspecific T abnormalities, lateral leads Compared to ECG 02/20/2018 09:53:27 T-wave abnormality now present Sinus rate has increased Atrial premature complex(es) no longer present Electronically Signed On 02-16-2019 10:03:38 CDT by Ezequiel Corbett [email or web address] <ELECTRONICALLY SIGNED> By: Ezequiel Corbett MD, [facility] 02/16/19 1003 1147 1147 Ezequiel Corbett MD, [facility] /EPI
--- NOTE | 2019-02-16 15:16 | NUR ---
Pt is A&O. Resides at home with his . Independent, drives. Per chart, hx of [facility] for his o2, Pt states that he thinks that his o2 is now through [facility] to call and confirm. Pt has a walker, cane and wc at home. Pt has a PT that comes in twice/week through [facility], paid through his [employer] benefits. Hx of [facility] . Hx of skilled at [facility]. [place]al [place]. Following.
--- NOTE | 2019-02-16 18:14 | NUR ---
ASSUSSMED CARE OF PT APPROX 0730. ASSESSMENT COMPLETED CHARTED. MEDICATIONS GIVEN CHARTED. HOURLY ROUNDING OCCURING. PT NEEDS MEET. PT EDUCATION GIVEN ON ISOLATION PRECAUTIONS TO PT AND SPOUSE. VERBALIZED UNDERSTANDING. ISOLATION PRECAUTIONS MAINTAINED. PLAN OF CARE DISSCUSSED WITH PT. PT VERBALIZED UNDERSTANDING.
[2019-02-17 04:00] VITALS: BP 142/60
--- NOTE | 2019-02-17 04:44 | NUR ---
ASSUMED PATIENT CARE AT 1900. PATIENT ALERT AND ORIENTED TIMES FOUR. REMAINS IN ISOLATION FOR C-DIFF. MINOR COMPLAINTS OF PAIN NOTED, CONTROLLED WITH ORAL MEDICATIONS. PROPERTY UTILIZATION MANAGER AND HOURLY ROUNDING COMPLETED CHARTED
[2019-02-17 04:48] LABS: ABSOLUTE EOSINOPHILS 0.2 thou/uL (0.0-0.7); ABSOLUTE LYMPHOCYTES 1.1 thou/uL (0.8-5.3); ABSOLUTE MONOCYTES 0.8 thou/uL (0.0-1.2); ABSOLUTE NEUTROPHILS 6.2 thou/uL (1.6-8.1); BASOPHILS 0.2 %; EOSINOPHILS 2.4 %; HEMATOCRIT 34.4 % (42.0-52.0); HEMOGLOBIN 11.6 gm/dL (14.0-18.0); MCHC 33.8 g/dL (28.0-37.0); MCV 85.9 fL (80.0-100.0); MONOCYTES 10.1 %; MPV 8.3 fl. (7.2-11.1); NUCLEATED RBCS 0 /100WBC; PLATELET COUNT* 227 thou/uL (150-400); POLYS 74.3 %; RBC 4.01 mil/uL (4.50-6.00); RDW-CV 14.5 % (10.5-14.5); WBC 8.4 thou/uL (4.0-11.0)
[2019-02-17 08:00] VITALS: BP 131/69
--- NOTE | 2019-02-17 08:52 | NUR ---
ASSUMED CARE OF PT THIS AM AROUND 0715- CROCHET BEADER IN PLACE ORDERED, TRACING A-PACE WITH NOTED PACE MAKER- UPON ASSESSSMENT PT NOTED TO BE RESTING IN BED- PT A&O X4- CONTINENT OF BOWEL AND BLADDER- USING COMMODE AT BEDSIDE- LCTA, RESP EVEN AND UN-LABORED- VSS, O2 SAT 93% ON 2L VIA NC- ISOLATION IN PLACE AND MAINTAINED FOR C-DIFF- ABD SOFT/OBESE/NON-TENDER, BS X4 QUADS- LAST BM REPORTED X2 DAYS AGO-FAIR PO INTAKE NOTED THIS AM WITH BREAKFAST- IV NOTED TO RIGHT AC INTACT AND SL-+1 BLE EDEMA NOTED- PAIN TO BACK REPORTED, REPOSITIONING IN PLACE- CALL LIGHT AND PERSONAL BELONGINGS WITH IN REACH- PT MAKES NEEDS KNOWN- ALL NEEDS MET AT THIS TIME-WCTM
--- NOTE | 2019-02-17 09:42 | NUR ---
CM confirmed that Pt's home o2 and cpap is through [facility]
[2019-02-17 10:32] VITALS: BP 131/69
[2019-02-17] MEDS ORDERED: VANCOCIN 125 M125 M1 PO (10:38)
--- NOTE | 2019-02-17 12:19 | NUR ---
ORDERS RECEIVED FOR OKAY FOR PT TO BE D/C'D TO HOME THIS SHIFT PER - CM HERE TO ARRANGE FOR VANC SCRIPT FORENSIC PSYCHOLOGIST VERIFICATION- IV TO RT AC D/C'D PRIOR TO D/C'D ALONG WITH PEDIATRIC CRITICAL CARE NURSE- D/C EDUCATION/TEACHING/NEEDED FOLLOW UP'S COMMUNICATED TO PT WITH ALL QUESTIONS AND CONCERNS ADDRESSED PRIOR TO D/C- WRITTEN EDUCATION ALONG WITH SCRIPTS PROVIDED TO PT PRIOR TO D/C- BELONGINGS PACKED AND ACCOUNTED FOR PER PT AND TECH- PT CURRENTLY DRESSED EATING LUNCH IN ROOM, AWAITTING FOR D/C- ALL NEEDS MET AT THIS TIME-WCTM
--- NOTE | 2019-02-17 15:07 | PATH ---
[facility] [address] [place] [address] PATHOLOGY RPT PROCEDURE Name: MUKUL ROBERTS Room: [address] IN .R.#: [id number] Admission: 02/14/19 Date of : 47 Discharge: 02/17/19 Report #: [id number] Path Case #: [id number] [facility] Accession Number: [id number] . 01 Material submitted: . PART A: stomach - GASTRIC BIOPSY PART B: colon - TRANSVERSE COLON POLYP. Modifiers: transverse PART C: colon - SIGMOID COLON POLYP PART D: rectum - RECTAL COLON POLYP . 01 Clinical history: . Gastritis, colon polyps, diverticulosis, hemorrhoids . 02 Diagnosis: A. Gastric biopsy: - Normal gastric mucosa, negative for Helicobacter pylori organisms. . B. Transverse colon polyp: - Pedunculated tubular adenoma, without high-grade dysplasia, with surgical margin of stalk free of involvement. . C. Sigmoid colon polyp: - Tubular adenoma, negative for high-grade dysplasia. . D. Rectal colon polyp: - Hyperplastic polyp. (ARGENIS:cecilia; 02/17/2019) . Special stain on A: H. pylori immuno. MBR/02/17/2019 . 02 Electronically signed: . Norberto Nagy MD, Pathologist NPI- [id number] . 01 Gross description: . A. The specimen is received in formalin, labeled "Mukul Roberts, gastric biopsy", are two of joe soft tissue fragments measuring 0.2 and a 0.3 cm in greatest dimension. Entirely submitted in A1. . B. The specimen is received in formalin, labeled "Mukul Roberts, transverse colon polyp", is a possible pedunculated polyp with a stalk measuring 0.3 cm in length by 0.8 x 0.6 cm and head measuring 1.6 x 1.2 x 1.2 cm. The margin is inked black and the specimen is serially sectioned and entirely submitted in B1-B2. . C. The specimen is received in formalin, labeled "Mukul Roberts, sigmoid colon polyp", is a joe rubbery 0.2 cm in greatest dimension [facility], [place] [address] PATHOLOGY RPT PROCEDURE Name: MUKUL ROBERTS Room: [address] IN M.R.#: [id number] Admission: 02/14/19 Date of : 47 Discharge: 02/17/19 Report #: [id number] Path Case #: [id number] entirely submitted in C1. . D. The specimen is received in formalin, labeled "Mukul Roberts, rectal colon polyp", is a joe, rubbery sessile polyp measuring 0.4 x 0.2 x 0.1 cm, margin inked black, bisected and entirely submitted in D1. ([facility]; 02/16/2019) SHS/ . 02 Pathologist provided ICD-10: D12.3, D12.5, K62.1 . 02 CPT . 774801, 284382, 563132, 196160, H61751 Specimen Comment: A courtesy copy of this report has been sent to Specimen Comment: [phone], , . Specimen Comment: Report sent to ,DR LAI / DR JUDGE Performed at: [address] [facility] [address], [place], [place] [id number] MD Alejandro Gallego MD Phone: [phone] Performed at: [address] [facility] [place] [address] [address] [place], [place] [id number] MD Norberto Nagy MD Phone: [phone]
--- NOTE | 2019-02-20 15:13 | NUR ---
CALL FROM ASKING ABOUT INSURANCE AUTH FOR STAY. DISCUSSED WITH HER. SHE ALSO ASKED ABOUT CDIFF PRECAUTIONS, STATED SHE HAD GOTTEN MIXED MESSAGES AND INFO. INFO GIVEN RE: CDIFF PRECAUTIONS WITH EDUCATION
== END 2019-02-17 13:21 | disposition home or self-care (01) | DRG 372 ==
LOC: M.ERS 11:11 → M.2W 11:44 → M.TBA-ER 11:44 → M.2W 13:25
PROVIDERS: Internal Medicine; Nurse Practitioner Family; ADMIT Internal Medicine
PROC: 5A09357 Assistance with Respiratory Ventilation, Less than 24 Consecutive Hours, Continuous Positive Airway Pressure (ICD-10-PCS; principal; 2019-02-14)
PROC: 0DB68ZX Excision of Stomach, Via Natural or Artificial Opening Endoscopic, Diagnostic (ICD-10-PCS; 2019-02-15)
PROC: 0DBN8ZZ Excision of Sigmoid Colon, Via Natural or Artificial Opening Endoscopic (ICD-10-PCS; 2019-02-15)
PROC: 0DBL8ZZ Excision of Transverse Colon, Via Natural or Artificial Opening Endoscopic (ICD-10-PCS; 2019-02-15)
PROC: 0DBP8ZZ Excision of Rectum, Via Natural or Artificial Opening Endoscopic (ICD-10-PCS; 2019-02-15)
DX: A04.72 Enterocolitis due to Clostridium difficile, not specified as recurrent (principal); K92.2 Gastrointestinal hemorrhage, unspecified; D68.59 Other primary thrombophilia; I42.9 Cardiomyopathy, unspecified; Z68.41 Body mass index [BMI] 40.0-44.9, adult; J44.9 Chronic obstructive pulmonary disease, unspecified; N40.0 Benign prostatic hyperplasia without lower urinary tract symptoms; I12.9 Hypertensive chronic kidney disease with stage 1 through stage 4 chronic kidney disease, or unspecified chronic kidney disease; I25.10 Atherosclerotic heart disease of native coronary artery without angina pectoris; D12.5 Benign neoplasm of sigmoid colon; E66.01 Morbid (severe) obesity due to excess calories; N18.3 Chronic kidney disease, stage 3 (moderate); D12.3 Benign neoplasm of transverse colon; K62.1 Rectal polyp; K64.9 Unspecified hemorrhoids; M19.90 Unspecified osteoarthritis, unspecified site; Z95.0 Presence of cardiac pacemaker; I25.2 Old myocardial infarction; Z86.73 Personal history of transient ischemic attack (TIA), and cerebral infarction without residual deficits; Z95.5 Presence of coronary angioplasty implant and graft; Z79.01 Long term (current) use of anticoagulants; Z79.02 Long term (current) use of antithrombotics/antiplatelets; Z79.82 Long term (current) use of aspirin; Z79.899 Other long term (current) drug therapy; Z88.5 Allergy status to narcotic agent; Z88.8 Allergy status to other drugs, medicaments and biological substances; Z91.041 Radiographic dye allergy status; Z80.0 Family history of malignant neoplasm of digestive organs

== ENCOUNTER 2019-06-10 04:29 | Inpatient (IN) | payer BC ==
[~2019-06-10] VITALS: Ht 188 cm; Wt 148.3 kg
[2019-06-10] VITALS (12 sets, daily range): BP systolic 92–187; BP diastolic 41–80
[~2019-06-10 04:29] MED LIST changes: +CARVEDILOL12.5 MG PO; +NEURONTIN 400400 M1 PO; +VANCOCIN 125 M125 M1 PO
[2019-06-10 05:04] LABS: ABSOLUTE EOSINOPHILS 0.2 thou/uL (0.0-0.7); ABSOLUTE LYMPHOCYTES 1.2 thou/uL (0.8-5.3); ABSOLUTE MONOCYTES 0.7 thou/uL (0.0-1.2); ABSOLUTE NEUTROPHILS 5.6 thou/uL (1.6-8.1); BASOPHILS 0.2 %; EOSINOPHILS 3.3 %; HEMATOCRIT 36.6 % (42.0-52.0); HEMOGLOBIN 12.1 gm/dL (14.0-18.0); LYMPHOCYTES 15.1 %; MCHC 32.9 g/dL (28.0-37.0); MCV 85.2 fL (80.0-100.0); MONOCYTES 8.5 %; MPV 7.7 fl. (7.2-11.1); NUCLEATED RBCS 0 /100WBC; PLATELET COUNT* 278 thou/uL (150-400); POLYS 72.9 %; RDW-CV 14.8 % (10.5-14.5); WBC 7.6 thou/uL (4.0-11.0)
[2019-06-10 05:13] LABS: APTT 35.3 Seconds (25.0-31.3); INR 1.7; PROTIME 17.2 Seconds (9.20-11.50)
[2019-06-10 05:19] LABS: CALCIUM 8.8 mg/dL (8.5-10.1); CREATININE 1.7 mg/dL (0.6-1.3); POTASSIUM 3.6 mmol/L (3.5-5.1)
[2019-06-10 05:27] LABS: ALBUMIN 2.9 g/dL (3.4-5.0); TOTAL BILIRUBIN 0.3 mg/dL (<0.1-1.0)
[2019-06-10 13:10] LABS: CHOLESTEROL 125 mg/dL (<200); HDL CHOLESTEROL 25 mg/dL (>40); LDL CHOLESTEROL 76 mg/dL (<100); MAGNESIUM 2.1 mg/dL (1.8-2.4); SERUM ASSESSMENT Clear; TRIGLYCERIDE 122 mg/dL (<150); VLDL 24 mg/dL (<40)
--- NOTE | 2019-06-10 16:58 | EKG ---
[place] [address] ELECTROCARDIOGRAM REPORT Name: MUKUL ROBERTS Room: [address] ADM IN M.R.#: [id number] Admission: 06/10/19 Attend Phys: Loco Pruett MD Discharge: Date of : 47 Report #: [id number] THIS REPORT FOR: //name// [facility] ED Test Date: 2019-06-10 Test Time: 04:32:48 Pat Name: MUKUL ARMANDO Department: Room: [facility] Gender: M Securities Compliance Examiner: [place] : 1945 Requested By: Triny Yeh Order Number: [id number] MD: Jonathan Blankenship Measurements Intervals [place] Rate: 102 P: 70 NV: 218 QRS: 12 QRSD: 86 T: 73 QT: 331 QTc: 432 Interpretive Statements Sinus tachycardia with first-degree AV block Abnormal R-wave progression, late transition Compared to ECG 02/14/2019 11:47:58 Sinus tachycardia no longer present T-wave abnormality no longer present Electronically Signed On 06-10-2019 16:57:48 WHARF WORKER by Jonathan Blankenship [email or web address] <ELECTRONICALLY SIGNED> By: Jonathan Blankenship MD, FACC 06/10/19 1657 0432 0432 Jonathan Blankenship MD, FAC /EPI
[2019-06-10 17:49] LABS: AMP/METHAMP Negative (Negative); BARBITURATES Negative (Negative); BENZODIAZEPINES POSITIVE (Negative); COCAINE Negative (Negative); METHADONE Negative (Negative); OPIATES POSITIVE (Negative); PCP Negative (Negative); THC Negative (Negative)
[2019-06-10 23:07] LABS: GLYCOHEMOGLOBIN (HGB A1C) 5.9 % (4.8-5.6)
[2019-06-11] VITALS (14 sets, daily range): BP systolic 113–174; BP diastolic 53–86
[2019-06-11 05:02] LABS: HEMATOCRIT 36.5 % (42.0-52.0); HEMOGLOBIN 12.1 gm/dL (14.0-18.0); MCH 28.1 pg (26.0-34.0); MCHC 33.1 g/dL (28.0-37.0); MPV 8.4 fl. (7.2-11.1); RBC 4.3 mil/uL (4.50-6.00); RDW-CV 14.9 % (10.5-14.5); WBC 7.7 thou/uL (4.0-11.0)
[2019-06-11 05:13] LABS: CALCIUM 8.2 mg/dL (8.5-10.1); CREATININE 1.3 mg/dL (0.6-1.3); INR 1.6; POTASSIUM 3.8 mmol/L (3.5-5.1)
[2019-06-11] MEDS ORDERED: NEURONTIN100 MG PO (06:50)
--- NOTE | 2019-06-11 17:56 | CARD ---
[address] [address] CARDIAC CATH REPORT Name: MUKUL ROBERTS Room: [address] IN ..#: [id number] Admission: 06/10/19 Attend Phys: Loco Pruett MD Discharge: Date of : 47 Report #: [id number] THIS REPORT FOR: //name// APPROVED REPORT Study performed: 06/11/2019 14:03:57 Patient Details Patient Status: In-Patient Room #: 206 The patient is a 74 year-old male Event Personnel Deven Ureña RTR Monitor, Jonathan Blankenship Dairy Grazer, Morales VeeubJag Tina RN mail truck driver Performed Left Heart Cath w/or w/o Coronaries [id number] [facility] Procedure Narrative The patient was brought electively to the Cardiac Catheterization Laboratory and was prepped and draped in a sterile manner. The right wrist was infiltrated with 2% Lidocaine subcutaneous anesthesia. A Slender Glidesheath sheath was inserted into the right radial artery. Coronary angiography was performed using coronary diagnostic catheters. The right coronary system was accessed and visualized with a 3DRC 5fr Diagnostic catheter. The left coronary system was accessed and visualized with a DCR: [place] 4.0 5fr Diagnostic catheter. The left ventricle was accessed and visualized with a Diagnostic 6Fr JR4 catheter. The patient tolerated the procedure well and there were no complications associated with the procedure. There was no hematoma. Intraoperative Conscious Sedation Sedation start time: 15:04 Case end Time: 15:30 Fentanyl 25 mcg Versed 1 mg Fluoro Time: 10.8 minutes Dose: DAP 716165 cGycm2 1702.59 mGy Contrast Type and Amount: Visipaque 100 ml Coronary Angiography The patient's coronary anatomy is [place] [address] CARDIAC CATH REPORT Name: ARMANDOMUKUL L Room: [address] IN [facility]#: [id number] Admission: 06/10/19 Attend Phys: Loco Pruett MD Discharge: Date of : 47 Report #: [id number] Left Main 20% distal narrowing. LAD 30% narrowing proximally. The mid and distal vessel are free of significant disease. Diagonal 1 Free of significant disease. Diagonal 2 Free of significant disease. Diagonal 3 Free of significant disease. Circumflex Free of significant disease. OM1 60% narrowing proximally. Right Coronary Widely patent stents from the proximal to distal right coronary artery. R PDA Free of significant disease. RPLV Free of significant disease. Ramus Brandie branched and free of significant disease. Left Ventriculography Left Ventriculography was not performed. Hemodynamics The aortic pressure is 150/68 mmHg with a mean of 96 mmHg. The left ventricular pressure is 155/3 mmHg with a mean of mmHg. The left ventricular end diastolic pressure is 18 mmHg. Conclusion 1. Widely patent stents throughout the proximal to distal right coronary artery with no significant stenoses. 2. No other significant stenoses noted. 3. Minimally elevated left ventricular end-diastolic pressure. Recommendations 1. Continue aggressive risk factor modification and medical management. <ELECTRONICALLY SIGNED> By: Jonathan Blankenship MD, FACC 06/11/191754 54 54Micmike Blankenship MD, FACC /INF
[2019-06-12] VITALS: BP 151/60
[2019-06-12 04:00] VITALS: BP 147/63
[2019-06-12 08:00] VITALS: BP 172/73
[2019-06-12 11:28] VITALS: BP 167/76
[2019-06-12] MEDS ORDERED: COUMADIN 5 MG TA5 M1 PO ×2 (14:18→14:51)
[2019-06-12 15:33] VITALS: BP 167/76
[2019-06-12 16:11] VITALS: BP 142/66
== END 2019-06-12 17:25 | disposition home or self-care (01) | DRG 280 ==
LOC: M.ERS 04:29 → M.TBA-ER 05:35 → M.ICU 05:35 → M.2W 20:42
PROVIDERS: Family Medicine; Personal Emergency Response Attendant; ADMIT Family Medicine
PROC: 4A023N7 Measurement of Cardiac Sampling and Pressure, Left Heart, Percutaneous Approach (ICD-10-PCS; principal; 2019-06-11)
PROC: B211YZZ Fluoroscopy of Multiple Coronary Arteries using Other Contrast (ICD-10-PCS; principal; 2019-06-11)
DX: I21.4 Non-ST elevation (NSTEMI) myocardial infarction (principal); N17.0 Acute kidney failure with tubular necrosis; D68.59 Other primary thrombophilia; J98.11 Atelectasis; I42.9 Cardiomyopathy, unspecified; I48.20 Chronic atrial fibrillation, unspecified; Z68.41 Body mass index [BMI] 40.0-44.9, adult; I50.32 Chronic diastolic (congestive) heart failure; I13.0 Hypertensive heart and chronic kidney disease with heart failure and stage 1 through stage 4 chronic kidney disease, or unspecified chronic kidney disease; I25.110 Atherosclerotic heart disease of native coronary artery with unstable angina pectoris; N18.3 Chronic kidney disease, stage 3 (moderate); E11.649 Type 2 diabetes mellitus with hypoglycemia without coma; E11.22 Type 2 diabetes mellitus with diabetic chronic kidney disease; J44.9 Chronic obstructive pulmonary disease, unspecified; I49.5 Sick sinus syndrome; G47.33 Obstructive sleep apnea (adult) (pediatric); E66.01 Morbid (severe) obesity due to excess calories; E78.5 Hyperlipidemia, unspecified; M19.90 Unspecified osteoarthritis, unspecified site; G89.29 Other chronic pain; M81.0 Age-related osteoporosis without current pathological fracture; Z79.2 Long term (current) use of antibiotics; Z79.01 Long term (current) use of anticoagulants; Z79.82 Long term (current) use of aspirin; Z87.440 Personal history of urinary (tract) infections; Z79.899 Other long term (current) drug therapy; Z95.5 Presence of coronary angioplasty implant and graft; Z95.0 Presence of cardiac pacemaker; Z91.041 Radiographic dye allergy status; Z86.73 Personal history of transient ischemic attack (TIA), and cerebral infarction without residual deficits; I25.2 Old myocardial infarction; Z88.8 Allergy status to other drugs, medicaments and biological substances; Z88.6 Allergy status to analgesic agent

== ENCOUNTER → 2019-07-13 | Outpatient (CLI) | payer BC ==
[~2019-07-13] MED LIST changes: +NEURONTIN100 MG PO
== END ==
LOC: M.RAD 12:10
DX: J44.9 Chronic obstructive pulmonary disease, unspecified (principal); Z95.0 Presence of cardiac pacemaker

== ENCOUNTER 2020-07-07 13:25 | Inpatient (IN) | payer BC ==
[~2020-07-07] VITALS: Ht 188 cm; Wt 148.0 kg
--- NOTE | ~2020-07-07 | CON ---
[address] [address] CONSULTATION Name: MUKUL ROBERTS Jagdeep Room: [address] IN .R.#: [id number] Admission: 07/07/20 Attend Phys: Carlos Gar Discharge: Date of : 47 Report #: [id number] THIS REPORT FOR: cc: Ko Luciano Bradley L. DO ~ Hugh Sarah MD DATE OF SERVICE: 07/08/2020 REQUESTING PHYSICIAN: Mario Gonsalez DO REASON FOR CONSULTATION: Chronic kidney disease and acute kidney injury on top of that. HISTORY OF PRESENT ILLNESS: The patient is a very pleasant 75-year-old gentleman, with medical history significant for chronic kidney disease stage 3, followed in our office by my partner, ____ presents with complaints of some back pain and elevated INR. He was sent to be admitted for elevated INR. His INR was more than 8 and today is down to 3.1. His creatinine 2.2 on admission down to 1.8 ____ close to his baseline. PAST MEDICAL HISTORY: Significant for: 1. Chronic kidney disease stage 3. 2. Diabetes mellitus type 2. 3. Hypertension. 4. Chronic obstructive pulmonary disease. MEDICATIONS: Reviewed. SOCIAL HISTORY: No tobacco, no alcohol abuse. FAMILY HISTORY: Noncontributory. REVIEW OF SYSTEMS: Positive for symptoms as I mentioned earlier, primarily back pain. No chest pain, no shortness of breath, no nausea, no vomiting. He does have some pollakiuria and nocturia. PHYSICAL EXAMINATION: GENERAL: Awake, alert, oriented. VITAL SIGNS: Blood pressure 133/62, heart rate 91, afebrile. HEENT: Pupils are round. NECK: Fatty. LUNGS: Clear. CARDIOVASCULAR: Regular rate. ABDOMEN: Soft. [address] [address] CONSULTATION Name: ARMANDOMUKUL L Room: [address]#: [id number] Admission: 07/07/20 Attend Phys: Carlos Gar Discharge: Date of : 47 Report #: [id number] LOWER EXTREMITIES: No edema. ASSESSMENT: 1. Acute kidney injury, resolved. 2. Chronic kidney disease stage 3. Renal function back to baseline. 3. Coronary artery disease. 4. History of transient ischemic attack. 5. Cardiomyopathy. 6. Chronic obstructive pulmonary disease. 7. Elevated INR. PLAN: From my standpoint, he is doing very well. Renal function back to his baseline. I will sign off. The patient follows with us in our office with ____. I recommend follow up with ____ in 3 weeks after discharge. By: [id number] Sarah MD /CAROLYN
[2020-07-07 13:45] VITALS: BP 126/51
[2020-07-07] MEDS ORDERED: COZAAR 25 MG TA25 M2 PO (13:57)
[2020-07-07] MEDS ORDERED: FLECAINIDE ACET50 M2 PO (13:58)
[2020-07-07 14:04] LABS: ABSOLUTE LYMPHOCYTES 0.9 thou/uL (0.8-5.3); ABSOLUTE MONOCYTES 0.6 thou/uL (0.0-1.2); ABSOLUTE NEUTROPHILS 5.1 thou/uL (1.6-8.1); BASOPHILS 0.1 %; HEMATOCRIT 39.4 % (42.0-52.0); HEMOGLOBIN 12.9 gm/dL (14.0-18.0); LYMPHOCYTES 13.1 %; MCH 27.9 pg (26.0-34.0); MCHC 32.6 g/dL (28.0-37.0); MCV 85.7 fL (80.0-100.0); MONOCYTES 8.5 %; MPV 7.6 fl. (7.2-11.1); NUCLEATED RBCS 0 /100WBC; PLATELET COUNT* 249 thou/uL (150-400); POLYS 78.3 %; RDW-CV 15.1 % (10.5-14.5); WBC 6.5 thou/uL (4.0-11.0)
[2020-07-07 14:11] LABS: CALCIUM 8.1 mg/dL (8.5-10.1); CREATININE 2.2 mg/dL (0.6-1.3); POTASSIUM 4.2 mmol/L (3.5-5.1)
[2020-07-07 14:15] LABS: APTT 64.6 Seconds (25.0-31.3); PROTIME 81.7 Seconds (9.20-11.50)
[2020-07-07 14:16] LABS: ALBUMIN 3.2 g/dL (3.4-5.0); TOTAL BILIRUBIN 0.2 mg/dL (<0.1-1.0); TOTAL PROTEIN 7.1 g/dL (6.4-8.2)
[2020-07-07 14:21] LABS: INR > 8.0
--- NOTE | 2020-07-07 16:30 | EKG ---
[place] [address] ELECTROCARDIOGRAM REPORT Name: MUKUL ROBERTS Room: [place] [address] ADM IN [facility]#: [id number] Admission: 07/07/20 Attend Phys: Mario Gonsalez Discharge: Date of : 47 Date of Service: 07/07/20 1432 Report #: [id number] THIS REPORT FOR: //name// [facility] ED Test Date: 2020-07-07 Test Time: 14:32:34 Pat Name: MUKUL ROBERTS Department: Room: [facility] Gender: M Security Advisor: CHERRIE : 1945 Requested By: Yolande Ludwig Order Number: [id number] MD: Jonathan Blankenship Measurements Intervals [place] Rate: 94 P: 268 [place]: 196 QRS: -23 QRSD: 185 T: 127 QT: 393 QTc: 492 Interpretive Statements Sinus tachycardia left bundle branch block Compared to ECG 06/10/2019 04:32:48 Left bundle-branch block now present Electronically Signed On 07-07-2020 16:30:07 GROUNDS KEEPER by Jonathan Blankenship [email or web address] <ELECTRONICALLY SIGNED> By: Jonathan Blankenship MD, FACC 07/07/20 1630 1432 1432 Jonathan Blankenship MD, FAC /EPI
[2020-07-07 18:04] VITALS: BP 109/62
[2020-07-07 20:30] VITALS: BP 105/58
[2020-07-08] VITALS: BP 115/49
[2020-07-08 04:00] VITALS: BP 115/52
[2020-07-08 04:50] LABS: ALBUMIN 2.8 g/dL (3.4-5.0); CALCIUM 7.6 mg/dL (8.5-10.1); CREATININE 1.8 mg/dL (0.6-1.3); POTASSIUM 3.6 mmol/L (3.5-5.1); TOTAL BILIRUBIN 0.3 mg/dL (<0.1-1.0); TOTAL PROTEIN 6.2 g/dL (6.4-8.2)
--- NOTE | 2020-07-08 05:27 | NUR ---
PT SLEPT OFF AND ON OVERNIGHT. AOXR, PLEASANT AND TALKATIVE. O2 4L NC PER HOME. ORNELAS DRAINING YELLOW URINE. L HAND IVF INFUSING PER PUMP. INR ELEVATED ON ADMISSION, BLEEDING PRECAUTIONS NOTED. PT ASSIST WITH TURN Q2 HOURS AND PRN PT REQUESTS AND WOULD ALLOW. TELE APACED WITH [facility]. ABLE TO USE CLAL LITE AND MAKE NEEDS KNOWN. NEPHROLOGY TO CONSULT.
[2020-07-08 08:00] VITALS: BP 133/62
[2020-07-08 09:40] LABS: APTT 54.2 Seconds (25.0-31.3); PROTIME 30.8 Seconds (9.20-11.50)
[2020-07-08 09:42] LABS: INR 3.1
[2020-07-08 12:50] VITALS: BP 132/47
[2020-07-08 17:08] VITALS: BP 145/49
--- NOTE | 2020-07-08 18:39 | NUR ---
PATIENT RESTING IN BED. ORNELAS TO DRAIN. DENIES PAIN. OV FLUIDS DC'D PER ORDERS. 4L PER NASAL CANULA, BACK TO HOME USE. NEPHRO AND CARDIOLOGY HAVE SIGNED OFF. EXPECT PATIENT TO DC TOMMORROW. PATIENT IN NO APPARENT SIGNS OF DISTRESS AT THIS TIME.
[2020-07-08 20:54] VITALS: BP 144/56
[2020-07-09] VITALS: BP 126/74
[2020-07-09 04:00] VITALS: BP 152/56
[2020-07-09 04:50] LABS: ABSOLUTE MONOCYTES 0.6 thou/uL (0.0-1.2); ABSOLUTE NEUTROPHILS 3.6 thou/uL (1.6-8.1); BASOPHILS 0.1 %; HEMATOCRIT 35.8 % (42.0-52.0); HEMOGLOBIN 11.8 gm/dL (14.0-18.0); LYMPHOCYTES 18.6 %; MCH 27.9 pg (26.0-34.0); MCHC 32.9 g/dL (28.0-37.0); MCV 84.8 fL (80.0-100.0); MONOCYTES 11.3 %; MPV 8.1 fl. (7.2-11.1); NUCLEATED RBCS 0 /100WBC; PLATELET COUNT* 219 thou/uL (150-400); RBC 4.22 mil/uL (4.50-6.00); RDW-CV 14.6 % (10.5-14.5); WBC 5.1 thou/uL (4.0-11.0)
[2020-07-09 05:03] LABS: PROTIME 14.8 Seconds (9.20-11.50)
[2020-07-09 05:20] LABS: INR 1.4
[2020-07-09 05:31] LABS: ALBUMIN 2.7 g/dL (3.4-5.0); CALCIUM 8.1 mg/dL (8.5-10.1); CREATININE 1.5 mg/dL (0.6-1.3); POTASSIUM 4.1 mmol/L (3.5-5.1); TOTAL BILIRUBIN 0.6 mg/dL (<0.1-1.0); TOTAL PROTEIN 6.3 g/dL (6.4-8.2)
[2020-07-09 08:00] VITALS: BP 134/55
--- NOTE | 2020-07-09 08:15 | NUR ---
PT IS ABLE TO COMMUNICATE HIS NEEDS TO STAFF WITH ONLY MINOR DIFFICULTY; HIS BASELINE SPEECH IS SOMEWHAT SLURRED. CURRENT PAIN MEDICATION REGIMEN HAS BEEN ADEQUATE FOR CONTROLLING HIS PAIN OVERNIGHT. ORNELAS HAS BEEN PATENT DURING NIGHGT SHIFT. POSSIBLE DISCHARGE TODAY.
--- NOTE | 2020-07-09 10:22 | NUR ---
CM SPOKE TO THE PT TO DISCUSS CM ASSESSMENT. PT A&O, AND INDEPENDENT WITH ADL'S. PT RESIDES AT HOME WITH SPOUSE AND SHE DOES ALL SHEET ROCK HANGER AND DRIVING. PT USES WALKER FOR MOBILITY. PT USES HOME O2 @ 4L PROVIDED BY [facility]. PT HAS PAST HX OF HH AND SNF. CM WILL REMAIN AVAILABLE TO ASSIST AND FOLLOW NEEDED.
[2020-07-09 11:32] VITALS: BP 140/74
--- NOTE | 2020-07-09 12:21 | NUR ---
ASSUMED CARE OF PATIENT THIS AM. PATIENT IS ALERT AND ORIENTED X 4. HE DENIES PAIN AND DISCOMFORT. TELE SHOWS SR WITH 1DAVB BBB AND PACS WITH AN INTERMITTENT A PACED RHYTHM. NO C/O DIZZINESS. WILL CONTINUE TO MONITOR PATIENT PROGRESS.
[2020-07-09] MEDS ORDERED: FLECAINIDE ACET50 M2 PO (14:51)
[2020-07-09] MEDS ORDERED: FLECAINIDE ACET50 M1 PO (15:11)
[2020-07-09 15:21] VITALS: BP 140/74
[2020-07-09 18:18] VITALS: BP 140/74
--- NOTE | 2020-07-11 08:42 | CON ---
[address] [address] CONSULTATION Name: MUKUL ROBERTS Room: [address] IN .R.#: [id number] Admission: 07/07/20 Attend Phys: Carlos Gar Discharge: 07/09/20 Date of : 47 Report #: [id number] THIS REPORT FOR: cc: Ko Luciano Bradley L. DO ~ Liston, Michael J. MD [facility] CARDIOLOGY CONSULTATION INDICATION: Syncope. HISTORY OF PRESENT ILLNESS: The patient is a very pleasant 75-year-old gentleman who is well known to myself. He has a history of coronary artery disease with preserved left ventricular systolic function. He has chronic diastolic heart failure for which he takes medication. He has a history of paroxysmal atrial fibrillation as well and is chronically anticoagulated. He was instructed to go to the Emergency Room with an elevated INR of 8.0. He denied any bleeding problems. In the Emergency Room, he notes that he has had several syncopal episodes in the last several weeks. With these episodes, he becomes lightheaded and dizzy and occasionally falls. At other times, he is assisted by family to a seated or lying down position. He is not having any significant chest pain. He does reports dyspnea on exertion and increased shortness of breath. He does have a history of orthostatic hypotension in the past. He has a history of sick sinus syndrome and paroxysmal atrial fibrillation. Interrogation of his device today shows some brief recurrent episodes of atrial fibrillation. PAST MEDICAL HISTORY: 1. Coronary artery disease. 2. Essential hypertension. 3. Orthostatic hypotension. 4. Hyperlipidemia. 5. Sick sinus syndrome. 6. Pacemaker in situ. 7. Paroxysmal atrial fibrillation. 8. Carotid narrowing bilaterally. 9. On chronic anticoagulation therapy. 10. Chronic renal insufficiency. 11. Chronic diastolic heart failure. ALLERGIES: BLUE DYE, CODEINE, FLEXERIL, VALIUM, TOPROL-XL, MORPHINE, OXYCONTIN, RANOLAZINE. HOME MEDICATIONS: Albuterol nebulizer q.4 hours p.r.n., albuterol inhaler [address] [place] [address] CONSULTATION Name: MUKLU ROBERTS Room: [address]#: [id number] Admission: 07/07/20 Attend Phys: Carlos Gar Discharge: 07/09/20 Date of : 47 Report #: [id number] puffs q.4 hours p.r.n., atorvastatin 80 mg at bedtime, carvedilol 12.5 mg b.i.d., clonazepam 0.5 mg b.i.d., Plavix 75 mg nightly, Bentyl 20 mg b.i.d., Nexium 40 mg b.i.d., fenofibrate 160 mg daily, flecainide 50 mg b.i.d., furosemide 40 mg daily, gabapentin 200 mg 6 tablets as directed, hydrocodone/acetaminophen 7.5/325 q.6 hours p.r.n., hydrocortisone 10 mg daily, Synthroid 100 mcg daily, losartan 25 mg daily, Hiprex 1 gram b.i.d., Singulair 10 mg at bedtime, Nitrostat sublingual p.r.n., Flomax 0.4 mg daily, Restoril 30 mg at bedtime, venlafaxine 225 mg daily, warfarin 5 mg daily. FAMILY HISTORY: Positive for coronary artery disease. SOCIAL HISTORY: The patient quit smoking remotely. He does not drink alcohol. REVIEW OF SYSTEMS: Positive for chest discomfort, leg swelling, shortness of breath, joint pain and lightheadedness otherwise unremarkable. PHYSICAL EXAMINATION: VITAL SIGNS: Blood pressure 132/47, pulse is 66 and regular. GENERAL: This is a pleasant, moderately obese gentleman who is in no distress. Mood and affect appropriate. HEENT: Extraocular muscles intact. Mucous membranes are moist. NECK: Shows a thick neck without obvious jugular venous distention. I do not appreciate bruits. CHEST: Reveals clear lung cuadra without wheezes or rales. CARDIOVASCULAR: Reveals a regular rhythm without gallop or murmur. ABDOMEN: Reveals a protuberant abdomen, soft and nontender. EXTREMITIES: Shows no significant edema. SKIN: Dry. LABORATORY DATA: A 12-lead EKG shows an atrially paced rhythm. He has a nonspecific intraventricular conduction delay. I do not appreciate any acute changes. Labs are reviewed. Of note, troponins are less than 0.06. The NT-proBNP was 207. Chest x-ray showed some cardiomegaly, but no other abnormalities. IMPRESSION AND RECOMMENDATIONS: 1. Syncope, likely due to orthostasis. The patient's Lasix is presently on hold. On discharge, I would recommend a home dose of 20 mg daily. 2. Paroxysmal atrial fibrillation. Increasing flecainide to 100 mg twice daily. Resume warfarin 5 mg daily. May need to adjust if his INR is trending upward again. [facility] [address] [place] [address] [address] CONSULTATION Name: MUKUL ROBERTS Room: [address] IN Melissa#: [id number] Admission: 07/07/20 Attend Phys: Mario MarianaCarlos Medley Discharge: 07/09/20 Date of : 47 Report #: [id number] 3. History of coronary artery disease. Presently stable. Troponin is unremarkable. He is not having any symptoms to suggest angina. 4. Chronic diastolic heart failure, presently stable. The patient appears euvolemic. 5. Pacemaker in situ for sick sinus syndrome. Interrogation today shows some recurrent atrial fibrillations, otherwise function is normal. 6. Elevated INR secondary to warfarin toxicity. The patient was given vitamin K. He has had a significant decline in his INR. We will resume 5 mg daily at this time and follow. 7. History of hypertension. Continuing carvedilol and losartan at current doses. If his blood pressure remains low normal. May need to decrease these doses. <ELECTRONICALLY SIGNED> By: Jonathan Blankenship MD, FACC 07/11/20 0842 1538 [id number] Medical Centermike Blankenship MD, FACC /nt
== END 2020-07-09 16:35 | disposition home or self-care (01) | DRG 813 ==
LOC: M.ERS 13:25 → M.TBA-ER 15:52 → M.2W 15:52
PROVIDERS: Internal Medicine Cardiovascular Disease; Physician Assistant; ADMIT Internal Medicine; ATTEND Internal Medicine
DX: D68.8 Other specified coagulation defects (principal); N17.9 Acute kidney failure, unspecified; Z68.41 Body mass index [BMI] 40.0-44.9, adult; I42.9 Cardiomyopathy, unspecified; I13.0 Hypertensive heart and chronic kidney disease with heart failure and stage 1 through stage 4 chronic kidney disease, or unspecified chronic kidney disease; I50.32 Chronic diastolic (congestive) heart failure; N18.2 Chronic kidney disease, stage 2 (mild); E66.01 Morbid (severe) obesity due to excess calories; I48.91 Unspecified atrial fibrillation; I49.5 Sick sinus syndrome; J44.9 Chronic obstructive pulmonary disease, unspecified; G89.29 Other chronic pain; N18.30 Chronic kidney disease, stage 3 unspecified; E11.22 Type 2 diabetes mellitus with diabetic chronic kidney disease; I25.10 Atherosclerotic heart disease of native coronary artery without angina pectoris; E78.5 Hyperlipidemia, unspecified; M54.9 Dorsalgia, unspecified; I48.0 Paroxysmal atrial fibrillation; Z20.822 Contact with and (suspected) exposure to COVID-19; I25.2 Old myocardial infarction; Z86.73 Personal history of transient ischemic attack (TIA), and cerebral infarction without residual deficits; Z99.81 Dependence on supplemental oxygen; Z95.5 Presence of coronary angioplasty implant and graft; Z79.01 Long term (current) use of anticoagulants; Z79.899 Other long term (current) drug therapy; Z79.82 Long term (current) use of aspirin; Z88.5 Allergy status to narcotic agent; Z88.8 Allergy status to other drugs, medicaments and biological substances; Z91.041 Radiographic dye allergy status; Z87.891 Personal history of nicotine dependence

== ENCOUNTER → 2021-01-03 | Outpatient (CLI) | payer BC ==
[~2021-01-03] MED LIST changes: +COZAAR 25 MG TA25 M2 PO; +FLECAINIDE ACET50 M1 PO; +FLECAINIDE ACET50 M2 PO
--- NOTE | 2021-01-04 11:09 | NUR ---
I have reviewed the documentation by ADRIA LOZANO from 01/03/21 to 01/04/21 and I concur with it. FABIÁN PALMER
== END ==
LOC: M.RAD 09:44
PROVIDERS: ATTEND Internal Medicine Critical Care Medicine
DX: R13.12 Dysphagia, oropharyngeal phase (principal); Z88.5 Allergy status to narcotic agent; Z88.8 Allergy status to other drugs, medicaments and biological substances

== ENCOUNTER → 2021-03-15 | Outpatient (CLI) | payer BC ==
[~2021-03-15] MED LIST changes: +DOXYCYCLINE 10100 MG PO; +PAIN RELIEF500 M1 PO
[2021-03-15 15:59] LABS: HEMATOCRIT 40.8 % (42.0-52.0); HEMOGLOBIN 13.1 gm/dL (14.0-18.0); MCH 27.7 pg (26.0-34.0); MCHC 32.1 g/dL (28.0-37.0); MCV 86.2 fL (80.0-100.0); MPV 7.8 fl. (7.2-11.1); RBC 4.73 mil/uL (4.50-6.00); RDW-CV 15.1 % (10.5-14.5); WBC 9.5 thou/uL (4.0-11.0)
[2021-03-15 16:14] LABS: ALBUMIN 3.4 g/dL (3.4-5.0); CALCIUM 8.2 mg/dL (8.5-10.1); CREATININE 1.7 mg/dL (0.6-1.3); POTASSIUM 4.5 mmol/L (3.5-5.1); TOTAL BILIRUBIN 0.5 mg/dL (<0.1-1.0)
== END ==
LOC: M.LAB 15:39
PROVIDERS: ATTEND Internal Medicine Cardiovascular Disease
DX: I11.0 Hypertensive heart disease with heart failure (principal); I50.32 Chronic diastolic (congestive) heart failure; I95.1 Orthostatic hypotension; E03.9 Hypothyroidism, unspecified; I25.10 Atherosclerotic heart disease of native coronary artery without angina pectoris; Z79.01 Long term (current) use of anticoagulants; Z86.73 Personal history of transient ischemic attack (TIA), and cerebral infarction without residual deficits

== ENCOUNTER 2021-03-16 14:42 | Inpatient (IN) | payer OTHER, BC ==
[~2021-03-16] VITALS: Ht 188 cm; Wt 147.4 kg
[~2021-03-16 14:42] MED LIST changes: -DOXYCYCLINE 10100 MG PO; -PAIN RELIEF500 M1 PO
[2021-03-16 14:45] VITALS: BP 139/77
--- NOTE | 2021-03-16 15:33 | EKG ---
[place] [address] ELECTROCARDIOGRAM REPORT Name: MUKUL ROBERTS Room: [facility]#: [id number] Admission: 03/16/21 Attend Phys: Discharge: Date of : 47 Date of Service: 03/16/21 1447 Report #: [id number] THIS REPORT FOR: //name// [facility] ED Test Date: 2021-03-16 Test Time: 14:47:39 Pat Name: MUKUL ROBERTS Department: Room: Gender: Self Pay Collector: [facility] : 1945 Requested By: Juan Francisco Villanueva Order Number: [id number] MD: Julian Virk Measurements Intervals [place] Rate: 113 P: 115 OR: 129 QRS: -54 QRSD: 186 T: 166 QT: 401 QTc: 550 Interpretive Statements atrial sensed and Ventricular-paced complexes No further rhythm analysis attempted due to paced rhythm Compared to ECG 07/07/2020 14:32:34 no change Electronically Signed On 03-16-2021 15:33:44 CDT by Julian Virk [email or web address] <ELECTRONICALLY SIGNED> By: Julian Virk MD, FACC 03/16/21 1533 1447 1447 Julian Virk MD, [facility] /EPI
[2021-03-16 16:04] LABS: ABSOLUTE LYMPHOCYTES 1.5 thou/uL (0.8-5.3); ABSOLUTE MONOCYTES 1.2 thou/uL (0.0-1.2); ABSOLUTE NEUTROPHILS 5.6 thou/uL (1.6-8.1); BASOPHILS 0.2 %; HEMATOCRIT 41.3 % (42.0-52.0); HEMOGLOBIN 13.4 gm/dL (14.0-18.0); LYMPHOCYTES 18.5 %; MCHC 32.5 g/dL (28.0-37.0); MCV 86.2 fL (80.0-100.0); MONOCYTES 14.1 %; MPV 8.2 fl. (7.2-11.1); NUCLEATED RBCS 0 /100WBC; PLATELET COUNT* 271 thou/uL (150-400); POLYS 67.2 %; RBC 4.79 mil/uL (4.50-6.00); RDW-CV 14.7 % (10.5-14.5); WBC 8.3 thou/uL (4.0-11.0)
[2021-03-16 16:15] LABS: CALCIUM 8.3 mg/dL (8.5-10.1); CREATININE 1.8 mg/dL (0.6-1.3); POTASSIUM 4.2 mmol/L (3.5-5.1)
[2021-03-16 16:25] LABS: ALBUMIN 3.4 g/dL (3.4-5.0); TOTAL BILIRUBIN 0.7 mg/dL (<0.1-1.0); TOTAL PROTEIN 7.2 g/dL (6.4-8.2)
[2021-03-16 16:28] LABS: PROTIME 20.1 Seconds (9.20-11.50)
[2021-03-16 19:58] VITALS: BP 140/90
[2021-03-16 20:15] VITALS: BP 118/73
[2021-03-17] VITALS (13 sets, daily range): BP systolic 102–136; BP diastolic 45–87
[2021-03-17 05:10] LABS: HEMATOCRIT 41.4 % (42.0-52.0); HEMOGLOBIN 13.5 gm/dL (14.0-18.0); MCH 28.2 pg (26.0-34.0); MCHC 32.6 g/dL (28.0-37.0); MCV 86.6 fL (80.0-100.0); MPV 8.7 fl. (7.2-11.1); RBC 4.78 mil/uL (4.50-6.00); RDW-CV 14.9 % (10.5-14.5); WBC 7.1 thou/uL (4.0-11.0)
[2021-03-17 05:17] LABS: INR 2.2; PROTIME 22.4 Seconds (9.20-11.50)
--- NOTE | 2021-03-17 05:32 | NUR ---
PT ARRIVED AT 1999. A&O X 4, FORGETFUL AT TIMES. ON 3L. PT USES 2.5-4L HOME. MEDS GIVEN ORDERED. UP TO BR WITH WALKER. PT WAS NOT ABLE TO VOID X 2, AND HE SAID HE SELF CATH HOME SOMETIMES DUE TO URINARY RETENTION. 592ML ON BLADDER SCAN, STRAIGHT CATH PROVIDED. NPO SINCE MIDNIGHT. CALL LIGHT WITHIN REACH. BED ALRM ON FOR SAFETY. WILL CONTINUE TO MONITOR.
[2021-03-17 05:37] LABS: ALBUMIN 3.4 g/dL (3.4-5.0); CALCIUM 8.5 mg/dL (8.5-10.1); CREATININE 1.7 mg/dL (0.6-1.3); MAGNESIUM 2.1 mg/dL (1.8-2.4); POTASSIUM 4.6 mmol/L (3.5-5.1); TOTAL BILIRUBIN 0.7 mg/dL (<0.1-1.0); TOTAL PROTEIN 7.5 g/dL (6.4-8.2)
--- NOTE | 2021-03-17 15:59 | NUR ---
CM ASSESSMENT: PT A&O. PT RESIDES AT HOME WITH SPOUSE AND SHE ASSIST THE PT WITH BATHING AND DRESSING. PT USES HOME OXYGEN @ 3L-4L. PT USES WALKER OR WHEELCHAIR FOR MOBILITY. PT HAS PAST HH AND SNF HX. PT MAY BE READY TO D/C OVER THE WEEKEND. IF PT'S NEEDS HH CALL AND FAX PT'S CLINICAL INFO TO [facility]. CM WILL REMAIN AVAILABLE TO ASSIST AND FOLLOW NEEDED. [facility] PHONE: [phone] FAX: [phone]
--- NOTE | 2021-03-17 17:25 | CON ---
[address] [address] CONSULTATION Name: MUKUL ROBERTS Jagdeep Room: [address] IN M.R.#: [id number] Admission: 03/16/21 Attend Phys: Jenae Jauregui MD Discharge: Date of : 47 Report #: [id number] THIS REPORT FOR: cc: Ko Luciano Bradley L. DO Liston, Michael J. MD [facility] ~ cc: Ko Luciano DO DATE OF CONSULTATION: 03/17/2021 CARDIOLOGY CONSULT INDICATION: Chest discomfort and progressive shortness of breath. HISTORY OF PRESENT ILLNESS: The patient is a very pleasant 75-year-old gentleman who is well known to myself. He has multiple medical issues including coronary artery disease, paroxysmal atrial fibrillation, diastolic heart failure, COPD, obstructive sleep apnea, hyperlipidemia, hypertension, sick sinus syndrome, status post pacemaker placement. At a recent office visit, he was noted to have increased frequency of his atrial fibrillation. His flecainide was increased to 100 mg b.i.d. in the hopes of maintaining sinus rhythm somewhat better. He presented to the hospital yesterday with complaints of continued increasing shortness of breath and chest pressure. He was found to be in atrial fibrillation with rapid ventricular response rate. He has ruled out for myocardial infarction. EKG is nondiagnostic. At present, he is resting comfortably. Heart rates remain irregular and above 100. He remains otherwise hemodynamically stable. PAST MEDICAL HISTORY: 1. Coronary artery disease. 2. Essential hypertension. 3. Orthostatic hypotension. 4. Hyperlipidemia. 5. Sick sinus syndrome. 6. Pacemaker placement. 7. Paroxysmal atrial fibrillation. 8. Carotid narrowing bilaterally. 9. Chronic anticoagulation. 10. Chronic renal insufficiency. 11. Chronic diastolic heart failure. ALLERGIES: BLUE DYE, CODEINE, FLEXERIL, VALIUM, TOPROL-XL, MORPHINE, OXYCONTIN, RANOLAZINE. HOME MEDICATIONS: Albuterol inhaler 2 puffs q.6 hours p.r.n., Brovana inhaler [address] [place] [address] CONSULTATION Name: MUKUL ROBERTS Room: [address]#: [id number] Admission: 03/16/21 Attend Phys: Jenae Jauregui MD Discharge: Date of : 47 Report #: [id number] times daily, atorvastatin 80 mg daily, Pulmicort nebulizer daily, Coreg 12.5 mg b.i.d., clonazepam 0.5 mg b.i.d., Plavix 75 mg daily, Bentyl 20 mg 2 times daily, Nexium 40 mg 2 times daily, fenofibrate 160 mg once daily, flecainide 100 mg twice daily, Lasix 40 mg twice daily, Neurontin 400 mg 2 capsules in a.m., 1 capsule at noon, 2 capsules in p.m., glucosamine and chondroitin supplement 1 daily, [place] 7.5/325 q.6 hours p.r.n., hydrocortisone 10 mg daily, levothyroxine 100 mcg daily, losartan 25 mg a half a tablet daily, methenamine hippurate 1000 mg 2 times daily, Singulair 10 mg nightly, Nitrostat sublingual p.r.n., omega 3 fatty acids 1200 mg daily, revefenacin 175 mcg per 3 mL solution daily, Bactrim 400/80 mg 1 tablet 2 times daily, Flomax 0.4 mg 2 times daily, Restoril 30 mg at bedtime p.r.n., Effexor 225 mg with breakfast, warfarin 5 mg daily. FAMILY HISTORY: Positive for coronary artery disease. SOCIAL HISTORY: The patient quit smoking many years ago. He does not drink alcohol. He is . His is in attendance. REVIEW OF SYSTEMS: Positive for chest discomfort, shortness of breath, joint pain, lightheadedness and dizziness. Otherwise, unremarkable. PHYSICAL EXAMINATION: VITAL SIGNS: Blood pressure 102/45, pulse is in the 110s and irregular. GENERAL: This is an obese, pleasant white male in no distress. HEENT: Normocephalic, atraumatic. Extraocular muscles intact. Mucous membranes are moist. NECK: Examination of the neck shows no jugular venous distention. I do not appreciate carotid bruits. CHEST: Reveals diminished breath sounds without wheezes or rales. CARDIAC: Reveals a distant S1 and S2 without gallop or murmur. ABDOMEN: Reveals a protuberant abdomen that is soft and nontender. Bowel sounds present. EXTREMITIES: Shows no edema. Peripheral pulses palpable. SKIN: Dry. IMAGING AND LABORATORY DATA: A 12-lead EKG shows atrial fibrillation with a ventricularly paced rhythm. Labs are reviewed. Electrolytes are stable. BUN 18, creatinine 1.7. High sensitivity troponins are 66, 53, 56, 41 sequentially. Chest x-ray shows some medial left basilar alveolar infiltrate without effusion. I do not appreciate gross volume overload. IMPRESSION AND RECOMMENDATIONS: [facility] [address] [place] [address] CONSULTATION Name: MUKUL ROBERTS Room: [address] IN Shelly#: [id number] Admission: 03/16/21 Attend Phys: Jenae Jauregui MD Discharge: Date of : 47 Report #: [id number] 1. Atrial fibrillation with rapid ventricular response rate. I will give flecainide bolus of 300 mg in an attempt to convert chemically. If this does not work, we will continue scheduled antiarrhythmic and consider cardioversion later today. 2. Coronary artery disease, presently stable. He does have complaints of chest pressure. His troponins are unremarkable. At this point in time, I would continue medical management. 3. Diastolic heart failure, appears compensated at this point in time. 4. Status post pacemaker placement for sick sinus syndrome. The pacemaker was interrogated a few days ago and is functioning normally. 5. Hypertension. Blood pressure low normal presently. May need to make some decreases in his antihypertensive medications. 6. Dyslipidemia. Continue current regimen. 7. Chronic obstructive pulmonary disease per hospitalist. 8. Significant deconditioning. I would recommend inpatient physical therapy and consider inpatient rehabilitation. <ELECTRONICALLY SIGNED> By: Jonathan Blankenship MD, FACC 03/17/21 1725 0822 [id number] Blankenship MD, FACC /nt
--- NOTE | 2021-03-17 19:13 | NUR ---
PATIENT RESTING IN BED. PATIENT IS UP STANDBY ASSIST WITH WALKER AND OXYGEN TO BATHROOM/CHAIR. PATIENT HAD COMPLAINTS OF CHEST PRESSURE THIS AM. CARDIOVERSION DONE THIS AFTERNOON WITHOUT INCIDENT. PATIENT STATES HE IS FEELING BETTER. PATIENT HAS GOOD APPETITE THIS EVENING, NPO THIS MORNING AND AFTERNOON. PATIENT DENIES ANY NEEDS AT THIS TIME. CALL LIGHT WITHIN REACH.
[2021-03-18] VITALS: BP 116/75
--- NOTE | 2021-03-18 03:58 | NUR ---
PT A&O X 4. ON 3-4 L. UP TO BR WITH WALKER. SOA WITH ACTIVITIES. NO C/O PAIN. CALL LIGHT WITHIN REACH. WILL CONTINUE TO MONITOR.
[2021-03-18 04:00] VITALS: BP 118/50
[2021-03-18 05:13] LABS: HEMATOCRIT 39.8 % (42.0-52.0); MCHC 32.7 g/dL (28.0-37.0); MCV 85.6 fL (80.0-100.0); NUCLEATED RBCS 0 /100WBC; PLATELET COUNT* 290 thou/uL (150-400); RBC 4.64 mil/uL (4.50-6.00); RDW-CV 14.6 % (10.5-14.5); WBC 10.2 thou/uL (4.0-11.0)
[2021-03-18 05:28] LABS: ALBUMIN 3.4 g/dL (3.4-5.0); CALCIUM 8.2 mg/dL (8.5-10.1); CREATININE 1.9 mg/dL (0.6-1.3); POTASSIUM 3.7 mmol/L (3.5-5.1); TOTAL BILIRUBIN 0.4 mg/dL (<0.1-1.0); TOTAL PROTEIN 7.4 g/dL (6.4-8.2)
[2021-03-18 05:32] LABS: INR 3.1; PROTIME 30.3 Seconds (9.20-11.50)
[2021-03-18 09:00] VITALS: BP 103/53
[2021-03-18 09:22] LABS: ABSOLUTE LYMPHOCYTES 0.7 thou/uL (0.8-5.3); ABSOLUTE MONOCYTES 0.7 thou/uL (0.0-1.2); ABSOLUTE NEUTROPHILS 8.8 thou/uL (1.6-8.1); PLATELET ESTIMATE ADEQUATE
[2021-03-18 12:00] VITALS: BP 151/84
[2021-03-18 16:00] VITALS: BP 152/87
[2021-03-18 17:37] LABS: URINE BILIRUBIN NEGATIVE (Negative); URINE BLOOD NEGATIVE (Negative); URINE CLARITY CLEAR; URINE COLOR YELLOW; URINE GLUCOSE-RANDOM NEGATIVE (Negative); URINE KETONES NEGATIVE (Negative); URINE LEUKOCYTES-REFLEX NEGATIVE (Negative); URINE NITRITE-REFLEX NEGATIVE (Negative); URINE PROTEIN NEGATIVE (Negative); URINE SPECIFIC GRAVITY 1.015 (1.005-1.030); URINE UROBILINOGEN 0.2 E.U./dl (0.2-1.0)
--- NOTE | 2021-03-18 20:01 | NUR ---
PT. AOX4, ANXIOUS, STABLE ON 6L O2, CALL LIGHT AND PERSONAL BELONGINGS PLACED WITHIN REACH. CPAP MACHINE BROUGHT FROM HOME BY SON. ADEQUATE UOP THROUGHOUT SHIFT, VOIDED COPIOUS AMOUNTSX3. PT. IN BED WATCHING TV, IN STABLE CONDITION, AT SHIFT CHANGE.
[2021-03-18 20:50] VITALS: BP 166/101
[2021-03-19] VITALS: BP 111/58
--- NOTE | 2021-03-19 02:33 | NUR ---
ASSUMED CARE OF PT AT 1900. PT IS ALERT AND ORIENTED. VSS. PERRJUSTIN. PT IS IN SINUS RYTHM ON THE TELEMETRY. PT IS RESTING COMFORTABLY IN BED. RESPIRATIONS ARE EVEN AND NONLABORED. WILL CONTINUE TO MONITOR PT.
[2021-03-19 04:01] VITALS: BP 106/60
[2021-03-19 04:12] LABS: INR 4.3; PROTIME 41.5 Seconds (9.20-11.50)
[2021-03-19 04:14] LABS: ABSOLUTE LYMPHOCYTES 0.5 thou/uL (0.8-5.3); ABSOLUTE MONOCYTES 0.3 thou/uL (0.0-1.2); ABSOLUTE NEUTROPHILS 8.4 thou/uL (1.6-8.1); HEMATOCRIT 36.7 % (42.0-52.0); LYMPHOCYTES 5.5 %; MCH 27.9 pg (26.0-34.0); MCHC 32.7 g/dL (28.0-37.0); MCV 85.4 fL (80.0-100.0); MONOCYTES 2.9 %; NUCLEATED RBCS 0 /100WBC; POLYS 91.6 %; RDW-CV 14.9 % (10.5-14.5); WBC 9.2 thou/uL (4.0-11.0)
[2021-03-19 04:17] LABS: ALBUMIN 3.1 g/dL (3.4-5.0); CALCIUM 7.5 mg/dL (8.5-10.1); POTASSIUM 3.7 mmol/L (3.5-5.1); TOTAL BILIRUBIN 0.5 mg/dL (<0.1-1.0); TOTAL PROTEIN 6.5 g/dL (6.4-8.2)
[2021-03-19 04:21] LABS: PLATELET COUNT* 211 thou/uL (150-400)
[2021-03-19 08:30] VITALS: BP 151/96
[2021-03-19 12:00] VITALS: BP 127/80
[2021-03-19 16:00] VITALS: BP 132/74
--- NOTE | 2021-03-19 17:11 | NUR ---
ASSISTED OUT OF BED SEVERAL TIMES TO COMMODE. SOA AND TACHYCARDIC WITH EXERTION. PLEASANT AND COOPERATIVE. IS CURRENTLY VISITING. PT FEELS LIKE HE IS DOING WORSE TODAY THAN HE HAS BEEN.
[2021-03-19 19:15] VITALS: BP 134/77
[2021-03-20] VITALS: BP 133/82
--- NOTE | 2021-03-20 03:47 | NUR ---
ASSUMED CARE OF PT AT 1900. PT IS ALERT AND ORIENTED. VSS. PERRLA. NO COMPLAINTS OF PAIN. PT IS IN SINUS RYTHM ON THE TELEMETRY. PT IS RESTING COMFORTABLY IN BED. RESPIRATIONS ARE EVEN AND NONLABORED. WILL CONTINUE TO MONITOR PT.
[2021-03-20 04:18] LABS: ABSOLUTE LYMPHOCYTES 0.4 thou/uL (0.8-5.3); ABSOLUTE MONOCYTES 0.4 thou/uL (0.0-1.2); ABSOLUTE NEUTROPHILS 9.8 thou/uL (1.6-8.1); HEMATOCRIT 40.9 % (42.0-52.0); LYMPHOCYTES 3.8 %; MCH 27.1 pg (26.0-34.0); MCHC 31.8 g/dL (28.0-37.0); MCV 85.2 fL (80.0-100.0); MPV 9.2 fl. (7.2-11.1); NUCLEATED RBCS 0 /100WBC; PLATELET COUNT* 244 thou/uL (150-400); POLYS 92.2 %; RDW-CV 15.1 % (10.5-14.5); WBC 10.6 thou/uL (4.0-11.0)
[2021-03-20 04:40] LABS: INR 3.8; PROTIME 37.1 Seconds (9.20-11.50)
[2021-03-20 04:42] VITALS: BP 140/80
[2021-03-20 04:47] LABS: ALBUMIN 3.2 g/dL (3.4-5.0); CALCIUM 8.1 mg/dL (8.5-10.1); CREATININE 1.7 mg/dL (0.6-1.3); POTASSIUM 3.8 mmol/L (3.5-5.1); TOTAL BILIRUBIN 0.6 mg/dL (<0.1-1.0); TOTAL PROTEIN 6.8 g/dL (6.4-8.2)
[2021-03-20 08:45] VITALS: BP 127/84
[2021-03-20 11:30] VITALS: BP 92/68
--- NOTE | 2021-03-20 13:59 | NUR ---
PLAN OF CARE: PHYSICIAN INFORMS OF INPT ARU CONSULT. INPT ARU INFORMS THAT OT EVAL IS PENDING AND WILL BE NEEDED TO DECIDE IF ABLE TO ACCEPT PT. CM WILL REMAIN AVAILABLE TO ASSIST AND FOLLOW NEEDED.
--- NOTE | 2021-03-20 14:44 | NUR ---
Nutrition: Pt admitted with angina. Assessed for high BMI. Wt: 325#. Eating 100% of CHO controlled diet. H/o afib COPD, HTN. On lasix. Albumin 3.2, BG 131. GOALS: gradual wt loss over time. No nutrition interventions at this time. Low risk.
[2021-03-20 16:00] VITALS: BP 143/89
--- NOTE | 2021-03-20 16:59 | 2DMMODE ---
[place] [address] 2 D/M-MODE ECHOCARDIOGRAM Name: MUKUL ROBERTS Room: [address] IN Steve.#: [id number] Admission: 03/16/21 Attend Phys: Jenae Jauregui, Discharge: Date of : 47 Date of Service: 03/20/21 1658 Report #: [id number] THIS REPORT FOR: cc: Ko Luciano Bradley L. DO Blick, David R. MD [facility] ~ APPROVED REPORT Study performed: 03/20/2021 15:16:44 EXAM: Comprehensive 2D, Doppler, and color-flow Echocardiogram Patient Location: In-Patient Room #: [facility] [place] Status: routine BSA: 2.67 HR: 92 bpm BP: 92/68 mmHg Rhythm: Atrial Fibrillation Other Information Study Quality: Good Indications Atrial Fibrillation Dyspnea 2D Dimensions IVSd: 13.21 (7-11mm) LVOT Diam: 20.03 (18-24mm) LVDd: 64.68 mm PWd: 10.80 (7-11mm) Ascending Ao: 41.43 (22-36mm) LVDs: 58.24 (25-40mm) Aortic Root: 36.54 mm Volumes Left Atrial Volume (Systole) LA ESV Index: 39.40 mL/m2 Aortic Valve AoV Peak Wilder.: 2.32 m/s AO Peak Gr.: 21.51 mmHg LVOT Max P.52 mmHg AO Mean Gr.: 12.99 mmHg LVOT Mean P.68 mmHg LVOT Max V: 0.94 m/s AO V2 VTI: 38.40 cm LVOT Mean V: 0.60 m/s BRIDGETTE (VTI): 1.27 cm2 LVOT V1 VTI: 15.43 [place] [address] 2 D/M-MODE ECHOCARDIOGRAM Name: MUKUL ROBERTS Room: [address] IN [facility]#: [id number] Admission: 03/16/21 Attend Phys: Jenae Jauregui, Discharge: Date of : 47 Date of Service: 03/20/21 1658 Report #: [id number] Tricuspid Valve RAP Estimate: 15.00 mmHg TR Peak Gr.: 42.21 mmHg RVSP: 57.00 mmHg PA Pressure: 57.00 mmHg Left Ventricle Left ventricle is moderately dilated. There is global hypokinesis of the left ventricle. There is normal left ventricular wall thickness. Left ventricular systolic function is moderately decreased. LVEF is 35-40%. This study is not technically sufficient to allow evaluation of the LV diastolic function. Right Ventricle Right ventricle is dilated. The right ventricular systolic function is normal. Pacemaker lead is present in the right ventricle. Atria Left atrium is mildly dilated. Right atrium is dilated. Aortic Valve Aortic valve is calcified. Mild aortic regurgitation. Mild aortic stenosis. Mitral Valve The mitral valve is normal in structure. Mild mitral regurgitation. No evidence of mitral valve stenosis. Tricuspid Valve The tricuspid valve is normal in structure. Mild tricuspid regurgitation. estimated pa pressure 55 mm Hg Pulmonic Valve The pulmonary valve is normal in structure. There is no pulmonic valvular regurgitation. Great Vessels Aortic root is mildly dilated. IVC is dilated and collapses <50% with inspiration. Pericardium There is no pericardial effusion. <Conclusion> Left ventricle is moderately dilated. LVEF is 35-40%. [place] [address] 2 D/M-MODE ECHOCARDIOGRAM Name: MUKUL ROBERTS Room: [address] IN [facility].#: [id number] Admission: 03/16/21 Attend Phys: Jenae Jauregui, Discharge: Date of : 47 Date of Service: 03/20/211657 Report #: [id number] Left atrium is mildly dilated. Mild aortic stenosis. Mild aortic regurgitation. Mild mitral regurgitation. Mild tricuspid regurgitation. estimated pa pressure 55 mm Hg <ELECTRONICALLY SIGNED> By: Julian Virk MD, [facility] 03/20/211657 57 1658 Julian Virk MD, FACC /INF
--- NOTE | 2021-03-20 20:12 | CON ---
[address] [address] CONSULTATION Name: MUKUL ROBERTS Jagdeep Room: [address] IN M.R.#: [id number] Admission: 03/16/21 Attend Phys: Jenae Jauregui MD Discharge: Date of : 47 Report #: [id number] THIS REPORT FOR: cc: Ko Luciano Bradley L. DO Pervez, Adeel MD ~ DATE OF CONSULTATION: 03/17/2021 REQUESTING PHYSICIAN: Dr. Jauregui. INDICATION FOR CONSULTATION: Respiratory failure/shortness of breath. HISTORY OF PRESENT ILLNESS: This is a 76-year-old gentleman. He has an extensive history of smoking in the past and does have COPD as well as obstructive and central sleep apnea. He is on a BiPAP AutoSV advanced as well as oxygen long-term. He is also followed by Dr. Blankenship for coronary artery disease, has a pacemaker and is anticoagulated for atrial fibrillation. He came to my office yesterday and reported that he had been seen the day before by Dr. Blankenship and had been started on Bactrim for suspected urinary tract infection and that his cardiac medication had also been adjusted. He was tachycardic with a heart rate of around 110 at that time, but did not appear to be in any distress. He stated that he has been having increasing shortness of breath for the last 2 weeks. He did not describe any increase in sputum production or new upper respiratory complaints. He did report swelling of lower extremities, unchanged compared with his baseline. The patient did state that sometimes food gets stuck in his chest. Note that he has a longstanding history of dysphagia; however, he did not describe to me any chest heaviness. Therefore yesterday, I ordered a prednisone taper and I also ordered a chest x-ray and I told him to go to the Emergency Room in case with prednisone, his shortness of breath fails to improve. The patient left my office likely from the parking lot. He and his family then called my office and told us that he was having chest heaviness and that he was going to the Emergency Room. According to the Emergency Room records, he shortly afterwards arrived in the Emergency Room and stated that I had sent him there for chest heaviness. The patient since then has been evaluated again by Cardiology and has now undergone electric cardioversion. He does report that his shortness of breath is now better. The patient has had significant daytime sleepiness. He says he uses his BiPAP all night and uses the BiPAP mask [place] [address] CONSULTATION Name: MUKUL ROBERTS Room: [address] IN ..#: [id number] Admission: 03/16/21 Attend Phys: Jenae Jauregui MD Discharge: Date of : 47 Report #: [id number] REVIEW OF SYSTEMS: His review of systems for 12 points is negative except as mentioned above. PAST MEDICAL HISTORY: 1. COPD, on oxygen fdc. 2. Obstructive as well as central sleep apnea. He is on a BiPAP AutoSV advanced, fdc. 3. Coronary artery disease, status post pacemaker placement. 4. Atrial fibrillation, on long-term anticoagulation with Coumadin. 5. Renal insufficiency, most recent creatinines are in the range of 1.7. 6. Dysphagia. He reports weakness in one of his vocal cords. I performed a video swallow recently which was unremarkable except for some penetration. I have recently offered him GI as well as ENT referrals as an outpatient, which he wanted to hold off on. 7. Agent [place] exposure. 8. Use of multiple sedative medications. 9. Hypertension. 10. Stroke. 11. Hyperlipidemia. His last available echocardiogram shows a left ventricular ejection fraction of 60-65% with a pulmonary artery systolic of 22. SOCIAL HISTORY: There is an extensive history of smoking in the past. He has now discontinued. No known history of heavy alcohol use or illegal drug use. CURRENT MEDICATIONS: List in [email or web address] reviewed. HOME MEDICATIONS: List in [email or web address] reviewed. FAMILY HISTORY: Heart disease and lung cancer. IMMUNIZATION HISTORY: He has had 2 doses of Moderna COVID-19 vaccine. PHYSICAL EXAMINATION: GENERAL: He is alert, awake and oriented. Does not appear to be in any distress. VITAL SIGNS: His heart rate is 95, blood pressure is 105/59. He is saturating 92%. He is on 3 liters nasal cannula. Respiratory rate is mildly elevated to 20. HEENT: Head is normocephalic and atraumatic. Pupils are equal and reactive. He has a narrow airway. There is no throat erythema. NECK: Does not show raised JVP, asymmetry, mass or lymph nodes. CHEST: Symmetrical expansion on inspection and palpation. On auscultation, [address] [place] [address] CONSULTATION Name: MUKUL ROBERTS Room: [address] IN [facility]#: [id number] Admission: 03/16/21 Attend Phys: Jenae Jauregui MD Discharge: Date of : 47 Report #: [id number] breath sounds are bilaterally equal, but decreased. No added sounds. HEART: Regular. No murmur. ABDOMEN: Soft and nontender. EXTREMITIES: Lower extremities, 1+ edema. No calf tenderness. SKIN: Dry and intact. NEUROLOGIC: Moves all extremities bilaterally equally and spontaneously with no focal deficit identified. IMAGING: The patient's chest x-ray performed on admission as well as today show mild increase in pulmonary vascular congestion. There is a radiopaque density at the left lung base as well. LABORATORY DATA: The patient's lab work is in [email or web address]. He has a normal WBC count. Chemistry shows creatinine to be at his baseline. His INR is therapeutic at 2.2. COVID-19 antigen is negative. ASSESSMENT AND PLAN: 1. Primarily, it appears that the patient developed increase in pulmonary vascular congestion secondary to atrial fibrillation and rapid ventricular response. This is the likely etiology of his decompensation of his respiratory failure. There does appear to be a component of chronic obstructive pulmonary disease exacerbation as well. Also, as discussed above, there is an opacity at the left lung base which can be an infiltrate. 2. Chronic obstructive pulmonary disease exacerbation. I cut back his Solu-Medrol dose. If he continues to improve, then this could be switched over to prednisone tomorrow morning. Note that the patient is on Brovana and budesonide as well as a long-acting anticholinergic agent at home long-term. He is only ordered p.r.n. albuterol here. I did not change it to schedule today as he has had AFib with RVR. We plan to resume his budesonide and Brovana tomorrow morning. 3. Pulmonary infiltrates/radiopaque density, left lung base. There is a new opacity at the left lung base. This could be an infiltrate. This could also be old scarring or a small pleural effusion. Agree with treating him with antibiotics. We will obtain a CT chest without contrast in the morning to clarify this finding. 4. Obstructive sleep apnea and central sleep apnea. Note that he is on a BiPAP AutoSV advanced as well as oxygen long-term. He was using his BiPAP AutoSV advanced not only at night, but also for part of the day as well. We will place him on hospital BiPAP until his own BiPAP could be brought here. Note that the patient takes multiple sedative medications [place] [address] CONSULTATION Name: MUKUL ROBERTS Room: [address] IN [facility]#: [id number] Admission: 03/16/21 Attend Phys: Jenae Jauregui MD Discharge: Date of : 47 Report #: [id number] these back may improve his daytime sleepiness. 5. Fluid overload/increase in pulmonary vascular congestion/chronic renal insufficiency. He does have an increase in pulmonary vascular congestion on his chest x-ray; however, I did not give him Lasix today as he has chronic renal insufficiency and the primary etiology of this appears to be atrial fibrillation with RVR. If his heart rate remains under control, then likely this would resolve. If not, then diuresis could be considered later. 6. Possible urinary tract infection. I will go ahead and obtain a urinalysis as well. 7. Atrial fibrillation with rapid ventricular response. Management deferred to the Cardiology service. 8. Longstanding history of dysphagia. The patient has previously declined a GI as well as ENT consult. He does report weakness of his vocal cords. Recent video swallow only shows penetration. He does need aspiration precautions. 9. Longstanding use of hydrocortisone. Indication not listed on the chart, likely due to adrenal insufficiency. <ELECTRONICALLY SIGNED> By: Shreyas Roblero MD 03/20/212011 2232 [id number] Roblero MD /nt
[2021-03-21] VITALS: BP 143/74
[2021-03-21 04:00] VITALS: BP 118/62
[2021-03-21 04:55] LABS: ABSOLUTE LYMPHOCYTES 0.9 thou/uL (0.8-5.3); ABSOLUTE MONOCYTES 0.8 thou/uL (0.0-1.2); ABSOLUTE NEUTROPHILS 6.1 thou/uL (1.6-8.1); HEMATOCRIT 38.1 % (42.0-52.0); HEMOGLOBIN 12.4 gm/dL (14.0-18.0); LYMPHOCYTES 11.4 %; MCH 27.7 pg (26.0-34.0); MCHC 32.7 g/dL (28.0-37.0); MCV 84.7 fL (80.0-100.0); MONOCYTES 10.3 %; MPV 9.1 fl. (7.2-11.1); NUCLEATED RBCS 0 /100WBC; PLATELET COUNT* 192 thou/uL (150-400); POLYS 78.3 %; RDW-CV 14.9 % (10.5-14.5); WBC 7.8 thou/uL (4.0-11.0)
[2021-03-21 05:27] LABS: PROTIME 30.1 Seconds (9.20-11.50)
[2021-03-21 05:48] LABS: ALBUMIN 3.1 g/dL (3.4-5.0); CREATININE 1.8 mg/dL (0.6-1.3); MAGNESIUM 2.6 mg/dL (1.8-2.4); POTASSIUM 3.6 mmol/L (3.5-5.1); TOTAL BILIRUBIN 0.5 mg/dL (<0.1-1.0); TOTAL PROTEIN 5.9 g/dL (6.4-8.2)
[2021-03-21] MEDS ORDERED: DOXYCYCLINE 10100 MG PO (08:16)
[2021-03-21 09:00] VITALS: BP 126/70
--- NOTE | 2021-03-21 09:47 | EKG ---
[place] [address] ELECTROCARDIOGRAM REPORT Name: MUKUL ROBERTS Room: [address] ADM IN ..#: [id number] Admission: 03/16/21 Attend Phys: Jenae Jauregui, Discharge: Date of : 47 Date of Service: 03/20/21 1600 Report #: [id number] THIS REPORT FOR: //name// [facility] Test Date: 2021-03-20 Test Time: 16:00:47 Pat Name: MUKUL ROBERTS Department: Room: [address] Gender: M Salesperson Flowers: KF : 1945 Requested By: Julian Virk Order Number: [id number] Kadeem MD: Julian Virk Measurements Intervals [place] Rate: 105 P: AL: 176 QRS: -43 QRSD: 209 T: 99 QT: 462 QTc: 611 Interpretive Statements Atrial and ventricular paced complexes Compared to ECG 03/16/2021 14:47:39 no change Electronically Signed On 03-21-2021 9:47:31 CDT by Julian Virk [email or web address] <ELECTRONICALLY SIGNED> By: Julian Virk MD, [facility] 03/21/21 0947 1600 1600 Julian Virk MD, [facility] /EPI
[2021-03-21 12:00] VITALS: BP 109/52
--- NOTE | 2021-03-21 14:29 | NUR ---
PLAN OF CARE: PHYSICIAN INFORMS THAT PT IS MEDICALLY STABLE FOR D/C TO INPT ARU HERE. [facility] AUTH [facility]. PT WILL ALSO NEED RAPID COVID TEST PRIOR TO D/C TOP INPT ARU HERE. PT AND SPOUSE IN AGREEMENT AND SPOUSE INFORMS THAT SHE IS ABLE TO ASSIST THE PT AT D/C IF NEEDED. CM WILL REMAIN AVAILABLE TO ASSIST AND FOLLOW NEEDED.
[2021-03-21 16:00] VITALS: BP 105/50
[2021-03-21] MEDS ORDERED: PAIN RELIEF500 M1 PO (16:54)
[2021-03-21 21:00] VITALS: BP 109/53
[2021-03-22 01:19] VITALS: BP 129/52
[2021-03-22 05:01] VITALS: BP 125/70
[2021-03-22 05:35] LABS: CALCIUM 7.8 mg/dL (8.5-10.1); CREATININE 1.5 mg/dL (0.6-1.3); MAGNESIUM 2.2 mg/dL (1.8-2.4); POTASSIUM 3.8 mmol/L (3.5-5.1)
[2021-03-22 09:00] VITALS: BP 133/67
[2021-03-22 12:00] VITALS: BP 150/63
--- NOTE | 2021-03-22 15:37 | NUR ---
PLAN OF CARE: PHYSICIAN INFORMS OF PLAN FOR THE PT TO REMAIN INPT TELE STATUS TODAY. PLAN FOR PT TO POSSIBLY BE READY TO D/C TO INPT ARU TOMORROW PENDING PT BEING MEDICALLY STABLE. CM WILL REMAIN AVAILABLE TO ASSIST AND FOLLOW NEEDED.
[2021-03-22 16:00] VITALS: BP 140/60
[2021-03-22 20:00] VITALS: BP 118/54
[2021-03-23 00:09] VITALS: BP 135/53
[2021-03-23 03:57] LABS: ABSOLUTE MONOCYTES 0.9 thou/uL (0.0-1.2); BASOPHILS 0.2 %; HEMOGLOBIN 12.9 gm/dL (14.0-18.0); MCH 27.8 pg (26.0-34.0); MCHC 32.3 g/dL (28.0-37.0); MCV 86.2 fL (80.0-100.0); MONOCYTES 10.2 %; MPV 9.1 fl. (7.2-11.1); NUCLEATED RBCS 0 /100WBC; PLATELET COUNT* 208 thou/uL (150-400); POLYS 78.6 %; RBC 4.64 mil/uL (4.50-6.00); RDW-CV 14.9 % (10.5-14.5); WBC 8.9 thou/uL (4.0-11.0)
[2021-03-23 04:00] LABS: INR 2.1; PROTIME 21.8 Seconds (9.20-11.50)
[2021-03-23 04:01] VITALS: BP 120/50
[2021-03-23 04:12] LABS: CALCIUM 7.9 mg/dL (8.5-10.1); CREATININE 1.7 mg/dL (0.6-1.3); POTASSIUM 3.8 mmol/L (3.5-5.1); TOTAL BILIRUBIN 0.9 mg/dL (<0.1-1.0); TOTAL PROTEIN 6.3 g/dL (6.4-8.2)
[2021-03-23] MEDS ORDERED: COREG6.25 MG PO (07:46)
[2021-03-23] MEDS ORDERED: PACERONE 200 M200 M1 PO (07:46)
[2021-03-23] MEDS ORDERED: DEMADEX20 MG PO (07:46)
--- NOTE | 2021-03-23 07:49 | NUR ---
ASSUMED CARE OF PT AFTER REPORT AT 1930. PT A&0X4. VSS. PHYSICAL ASSESSMENT COMPLETED AND CHARTED. PT ON O2 AT 5 LNC. PT TRACING APACED/BBB ON TELE. PT UPWITH 1 ASSIST. PT COMPLAINED OF LOWER BACK & BLE-MED GIVEN PER MAR. ONGOING DOBUTAMINE DRIP. FALL PRECAUTIONS IN PLACE. CALL LIGHT WITHIN REACH.
[2021-03-23 08:00] VITALS: BP 112/51
[2021-03-23 12:05] VITALS: BP 111/53
--- NOTE | 2021-03-23 13:26 | EKG ---
[place] [address] ELECTROCARDIOGRAM REPORT Name: MUKUL ROBERTS Room: [address] ADM IN .R.#: [id number] Admission: 03/16/21 Attend Phys: Jenae Jauregui, Discharge: Date of : 47 Date of Service: 03/23/21 0806 Report #: [id number] THIS REPORT FOR: //name// [facility] Test Date: 2021-03-23 Test Time: 08:06:44 Pat Name: MUKUL ROBERTS Department: Room: [address] Gender: M Handbag Operator: [id number] : 1945 Requested By: Carina Saenz Order Number: [id number] Kadeem MD: Julian Virk Measurements Intervals [place] Rate: 69 P: 246 MT: 185 QRS: -47 QRSD: 186 T: 99 QT: 473 QTc: 507 Interpretive Statements AV sequential paced rhythm Compared to ECG 03/20/2021 16:00:47 rate has slowed Electronically Signed On 03-23-2021 13:26:24 CDT by Julian Virk [email or web address] <ELECTRONICALLY SIGNED> By: Julian Virk MD, [facility] 03/23/21 1326 5 Julian Virk MD, [facility] /EPI
--- NOTE | 2021-03-23 14:00 | NUR ---
PHYSICIAN INFORMS THAT PT IS MEDICALLY STABLE TO D/C TODAY TODAY TO INPT ARU. AT THIS TIME INSURANCE AUTH IS PENDING. PT WILL NEED A RAPID COVID TEST WHEN INSURANCE AUTH IS OBTAINED PRIOR TO TRANSFER TO INPT ARU. CM WILL REMAIN AVAILABLE TO ASSIST AND FOLLOW NEEDED.
[2021-03-23 16:41] VITALS: BP 122/53
--- NOTE | 2021-03-23 18:15 | NUR ---
patient has had a fair day. Patient is off dobutrex. started on po med to help with kidney function. patient up in chair a long time today. patient will transfer tomorrow. to rehab facility.
[2021-03-23 20:04] VITALS: BP 122/60
[2021-03-24] VITALS (7 sets, daily range): BP systolic 118–143; BP diastolic 57–75
--- NOTE | 2021-03-24 08:20 | NUR ---
PT IS ABLE TO COMMUNICATE HIS NEEDS TO STAFF EFFECTIVELY. CURRENT PAIN MEDICATION REGIMEN HAS BEEN ADEQUATE FOR CONTROLLING HIS PAIN UP TO 0700 THIS MORNING. POSSIBLE DISCHARGE UP TO [facility]E REHAB TODAY.
--- NOTE | 2021-03-24 09:10 | NUR ---
AT 0845 PATIENT TAKEN TO TEACHERS ASSISTANT PER BED BY TEACHERS ASSISTANT PERSONNEL. PATIENT HAS HAD NO CHEST PAIN LAST NIGHT OR THIS AM.
--- NOTE | 2021-03-24 09:19 | NUR ---
ABOVE NOTE TO BE DISMISSED. PATIENT DID NOT GO TO STORAGE BATTERY CHARGER.
--- NOTE | 2021-03-24 11:41 | NUR ---
PLAN OF CARE: PHYSICIAN INFORMS THAT THE PT IS MEDICALLY STABLE TO D/C TO INPT ARU HERE TODAY. [facility]PT ARU ACCEPTANCE REMAINS PENDING [facility]. PT WILL NEED RAPID COVID TEST PRIOR TO TRANSFER UP TO INPT ARU. CM WILL REMAIN AVAILABLE TO ASSIST AND FOLLOW NEEDED.
--- NOTE | 2021-03-24 19:54 | NUR ---
PATIENT HAD A GOOD DAY. PATIENT IS ASSISTED WHEN UP. PATIENT IS TO GO TO REHAB IN THE NEAR FUTURE. CASE MANAGEMENT IS WORKING ON THIS.
[2021-03-25 04:00] VITALS: BP 134/70
--- NOTE | 2021-03-25 06:33 | NUR ---
PT IS ABLE TO COMMUNICATE HIS NEEDS TO STAFF EFFECTIVELY. CURRENT PAIN MEDICATION REGIMEN HAS BEEN ADEQUATE FOR CONTROLLING HIS PAIN UP TO THIS TIME. POSSIBLE DISCHARGE TO REHAB SOON.
[2021-03-25 08:15] VITALS: BP 129/72
[2021-03-25 12:00] VITALS: BP 133/61
[2021-03-25 16:00] VITALS: BP 121/60
[2021-03-25 20:29] VITALS: BP 108/51
[2021-03-26 00:28] VITALS: BP 104/53
[2021-03-26 04:16] VITALS: BP 113/64
[2021-03-26 12:00] VITALS: BP 110/58
[2021-03-26 16:00] VITALS: BP 102/41
[2021-03-26 20:49] VITALS: BP 130/71
[2021-03-27] VITALS (7 sets, daily range): BP systolic 102–141; BP diastolic 53–87
--- NOTE | 2021-03-27 07:20 | NUR ---
CHANGE OF SHIFT REPORT GIVEN PATIENT SEEN AT BEDSIDE, IN BED RESTING ASSUMED PATIENT CARE
--- NOTE | 2021-03-27 07:57 | NUR ---
PT IS ABLE TO COMMUNICATE HIS NEEDS TO STAFF EFFECTIVELY. CURRENT PAIN MEDICATION REGIMEN HAS BEEN ADEQUATE FOR CONTROLLING HIS PAIN UP TO THIS TIME. POSSIBLE DISCHARGE TO REHAB, OR HOME WITH HOME HEALTH/PT, TODAY.
--- NOTE | 2021-03-27 09:08 | CARD ---
[place] [address] CARDIAC CATH REPORT Name: MUKUL ROBERTS Room: [address] IN .#: [id number] Admission: 03/16/21 Attend Phys: Jenae Jauregui MD Discharge: Date of : 47 Report #: [id number] THIS REPORT FOR: cc: Ko Luciano,Jonathan Jarquin MD [facility] ~ cc: Ko Luciano DO DATE OF SERVICE: 03/17/2021 PROCEDURE: DC cardioversion. INDICATION: Persistent atrial fibrillation. DESCRIPTION OF PROCEDURE: After informed consent was obtained, the patient was brought to the cardiac holding area. Moderate sedation was achieved with 3 mg of intravenous Versed and 75 mg of intravenous fentanyl. Once the patient was adequately sedated, he was converted from atrial fibrillation to an AV paced rhythm with a single biphasic shock of 360 joules. The patient tolerated the procedure well and without complication. He was returned to his room in stable condition. <ELECTRONICALLY SIGNED> By: Jonathan Blankenship MD, FACC 03/27/21907 1617 [id number] Blankenship MD, FACC /
[2021-03-27] MEDS ORDERED: BROVANA15 MCG/2 M INH (13:47)
--- NOTE | 2021-03-27 14:39 | NUR ---
PHYSICIAN INFORMS OF PLAN FOR THE PT TO D/C HOME TODAY. [facility], AND PT, SPOUSE AND SON DECLINED SNF PLACEMENT DESPITE EXTENSIVE AND EDUCATION AND ENCOURAGEMENT ABOUT THE BENEFITS AND RISK. PT, SPOUSE AND SON REQUEST THAT PT RETURN HOME WITH HH, PER SON PT 'HAD DONE FINE WITH HH IN THE PAST'. PT, SPOUSE, AND SON CONTINUE TO REQUEST THAT PT D/C HOME WITH [facility]. CM CALLED AND FAXED PT'S CLINICAL INFO. [facility] ACCEPTED PT. CM WILL REMAIN AVAILABLE TO ASSIST AND FOLLOW NEEDED. [facility] PHONE: [phone]
--- NOTE | 2021-03-27 16:25 | NUR ---
preparing patient for discharge home patient sitting at edge of bed and grabbed back of neck and suddenly passed out on bed witnessed by burial agent nurse to rm minutes later and patient sitting up at edge of bed awake and alert vital signs taken-122/71 91 16 97% 3l nc blood sugar-156 dr called and notified dc cancelled and orders for ct of head given will continue to monitor
[2021-03-27] MEDS ORDERED: SEREVENT DISKU50 MCG INH (16:43)
--- NOTE | 2021-03-27 16:45 | NUR ---
patients contacted and notified of change in status and cancellation of discharge
[2021-03-27 19:41] LABS: INR 1.5; PROTIME 15.2 Seconds (9.20-11.50)
[2021-03-28 04:11] VITALS: BP 112/63
--- NOTE | 2021-03-28 07:58 | NUR ---
PT IS ABLE TO COMMUNICATE HIS NEEDS TO STAFF EFFECTIVELY. CURRENT PAIN MEDICATION REGIMEN HAS BEEN ADEQUATE FOR CONTROLLING HIS PAIN UP TO THIS TIME. PT HAD SYNCOPAL EPISODE YESTERDAY; NO EPISODES OVERNIGHT; POSSIBLE DISCHARGE TODAY.
[2021-03-28 08:00] VITALS: BP 101/55
[2021-03-28 12:48] VITALS: BP 101/55
--- NOTE | 2021-03-28 12:54 | NUR ---
PT DISCHARGED HOME WITH ALL BELONGINGS ACCOMPANIED BY . VSS AFEBRILE. [employer] [employer] REMOVED HUB INTACT. PT DISCHARGED WITH ALL BELONGINGS, PT DENIED PAIN ON DISCHARGE.
--- NOTE | 2021-03-28 13:23 | NUR ---
PHYSICIAN INFORMS OF PLAN FOR THE PT TO D/C TODAY HOME WITH PREVIOUSL[facility] CHOSEN [facility]. PT'S D/C ON HOLD FROM THE PREVIOUS DAY FOR AN EPISODE OF SYNCOPE. PT NOW MEDICALLY STABLE AND READY TO D/C HOME PER PHYSICIAN. NO OTHER CM D/C PLANNING NEEDS ANTICIPATED. CM WILL REMAIN AVAILABLE TO ASSIST AND FOLLOW NEEDED.
== END 2021-03-28 14:00 | disposition home health service (06) | DRG 177 ==
LOC: M.ERS 14:42 → M.2W 16:38 → M.TBA-ER 16:38 → M.2W 20:12
PROVIDERS: Emergency Medicine; Internal Medicine; Internal Medicine Critical Care Medicine; Registered Nurse; ADMIT Internal Medicine; ATTEND Internal Medicine
PROC: 5A2204Z Restoration of Cardiac Rhythm, Single (ICD-10-PCS; principal; 2021-03-17)
PROC: 5A0935A Assistance with Respiratory Ventilation, Less than 24 Consecutive Hours, High Flow/Velocity Cannula (ICD-10-PCS; 2021-03-19)
PROC: 5A09357 Assistance with Respiratory Ventilation, Less than 24 Consecutive Hours, Continuous Positive Airway Pressure (ICD-10-PCS; 2021-03-20)
PROC: 5A09357 Assistance with Respiratory Ventilation, Less than 24 Consecutive Hours, Continuous Positive Airway Pressure (ICD-10-PCS; 2021-03-21)
PROC: 5A09357 Assistance with Respiratory Ventilation, Less than 24 Consecutive Hours, Continuous Positive Airway Pressure (ICD-10-PCS; 2021-03-22)
PROC: 5A09357 Assistance with Respiratory Ventilation, Less than 24 Consecutive Hours, Continuous Positive Airway Pressure (ICD-10-PCS; 2021-03-23)
PROC: 5A09357 Assistance with Respiratory Ventilation, Less than 24 Consecutive Hours, Continuous Positive Airway Pressure (ICD-10-PCS; 2021-03-24)
PROC: 5A09357 Assistance with Respiratory Ventilation, Less than 24 Consecutive Hours, Continuous Positive Airway Pressure (ICD-10-PCS; 2021-03-25)
PROC: 5A09357 Assistance with Respiratory Ventilation, Less than 24 Consecutive Hours, Continuous Positive Airway Pressure (ICD-10-PCS; 2021-03-26)
PROC: 5A09357 Assistance with Respiratory Ventilation, Less than 24 Consecutive Hours, Continuous Positive Airway Pressure (ICD-10-PCS; 2021-03-27)
DX: J15.6 Pneumonia due to other Gram-negative bacteria (principal); J96.21 Acute and chronic respiratory failure with hypoxia; I50.33 Acute on chronic diastolic (congestive) heart failure; I42.9 Cardiomyopathy, unspecified; I48.19 Other persistent atrial fibrillation; J44.0 Chronic obstructive pulmonary disease with (acute) lower respiratory infection; J44.1 Chronic obstructive pulmonary disease with (acute) exacerbation; E23.0 Hypopituitarism; R04.2 Hemoptysis; Z68.41 Body mass index [BMI] 40.0-44.9, adult; I13.0 Hypertensive heart and chronic kidney disease with heart failure and stage 1 through stage 4 chronic kidney disease, or unspecified chronic kidney disease; N39.0 Urinary tract infection, site not specified; G89.29 Other chronic pain; M19.90 Unspecified osteoarthritis, unspecified site; I25.10 Atherosclerotic heart disease of native coronary artery without angina pectoris; G47.33 Obstructive sleep apnea (adult) (pediatric); M25.50 Pain in unspecified joint; E66.01 Morbid (severe) obesity due to excess calories; I48.0 Paroxysmal atrial fibrillation; E78.5 Hyperlipidemia, unspecified; N18.9 Chronic kidney disease, unspecified; Z20.822 Contact with and (suspected) exposure to COVID-19; Z95.0 Presence of cardiac pacemaker; I25.2 Old myocardial infarction; Z86.73 Personal history of transient ischemic attack (TIA), and cerebral infarction without residual deficits; Z95.5 Presence of coronary angioplasty implant and graft; Z88.8 Allergy status to other drugs, medicaments and biological substances; Z88.6 Allergy status to analgesic agent; Z91.041 Radiographic dye allergy status; Z87.891 Personal history of nicotine dependence; Z79.52 Long term (current) use of systemic steroids

== ENCOUNTER → 2021-07-12 | Outpatient (CLI) | payer BC ==
[~2021-07-12] MED LIST changes: +BROVANA15 MCG/2 M INH; +COREG6.25 MG PO; +DEMADEX20 MG PO; +DOXYCYCLINE 10100 MG PO; +PACERONE 200 M200 M1 PO; +PAIN RELIEF500 M1 PO; +SEREVENT DISKU50 MCG INH
== END ==
LOC: M.RAD 15:28
PROVIDERS: ATTEND Nurse Practitioner
DX: J98.4 Other disorders of lung (principal); I50.22 Chronic systolic (congestive) heart failure; Z95.0 Presence of cardiac pacemaker